=== PATIENT | female | born 1950 | race Caucasian/White ===

== ENCOUNTER 2018-08-18 07:58 | Emergency (ER) | payer MEDICARE, OTHER, SELFPAY ==
[2018-08-18 07:58] VITALS: BP 138/62; PULSE 103; RESP 18; TEMP 36.9; O2SAT 96; BMI 23.2
--- NOTE | 2018-08-18 08:19 | EKG12_ITS ---
Test Reason : SOB Blood Pressure : / mmHG Vent. Rate : 082 BPM Atrial Rate : 082 BPM P-R Int : 124 ms QRS Dur : 074 ms QT Int : 378 ms P-R-T Axes : 074 040 067 degrees QTc Int : 441 ms Normal sinus rhythm Nonspecific ST and T wave abnormality Abnormal ECG Confirmed by OLLIE SHIRLEY, CRISPIN ([id number]), primer expeditor and drier DEXTER HAWKINS ([id number]) on 08/20/2018 2:59:09 PM Referred By: LC Confirmed By:CRISPIN LEVIN MD
--- NOTE | 2018-08-18 08:19 | RAD_ITS ---
STUDY: X-RAY CHEST REASON FOR EXAM: Female, 67 years old. Recent outside the tube sickness. TECHNIQUE: PA and lateral views of the chest. COMPARISON: None. FINDINGS: Basilar atelectatic changes with no evidence of focal opacity. There is no demonstrated pleural abnormality. Normal size heart. Normal mediastinum and lake. Normal visualized pulmonary arteries. Normal visualized aortic arch and descending thoracic aorta. Normal visualized thoracic spine. Normal visualized ribs, clavicles, and shoulders. There is no demonstrated abnormality of the visualized soft tissue structures of the upper abdomen. RAD/Chest PA and Lateral IMPRESSION: Basilar atelectasis with no evidence of focal airspace disease. Electronically Signed: Ephraim Gill DO at 9:57 EDT , Service support ,
--- NOTE | 2018-08-18 08:21 | ED.VISSUMM ---
- ER Visit Summary Date of Service: 08/18/18 Chief Complaint: [] Cough fever shortness of breath this morning History of Present Illness: The patient is a 67 F [] she reports she woke this morning around 4 AM with a harsh cough productive of some mucus temperature of 101 and shortness of breath. She has a home pulse ox machine she gets her pulse ox around 77% on room air. She has no history of pneumonia [place] PE DVT no risk factors for DVT or PE. Also complains of some facial pressure but has no significant signs of runny nose or sinusitis She is on no medications. She indicates she recently returned from a trip to [place] a few days ago. While there she was at 10,000 feet and she developed what was seems to be altitude illness where she states she had a headache shortness of breath, she was seen by physicians there and placed on oxygen and her symptoms actually improved she stayed for a few more days and came home a few days ago. Reports she was feeling well until she woke this morning with a temperature in the cough. Her bowel bladder habits have been normal she is been very active, she denies leg edema recent surgery or immobility. She currently has a pulse ox anywhere from 90-94 on room air here in the department she is feeling better with no complaints of shortness of breath now she is afebrile Physical Examination: [] Vital signs are within normal ranges above she is in no distress speaking full sentences her nose and throat are unremarkable her neck is very supple her lungs are clear heart tones are normal the abdomen soft nontender upper lower extremities unremarkable no cyanosis clubbing or edema or signs of DVT neurologically she is awake moving all 4 skin is normal the back is unremarkable, her HEENT exam shows really no significant abnormalities no drainage complains of facial pressure skin is normal no percussion tenderness Test Results: [] Emergency Department Course and Treatment: [] Given all the above complaints evaluation screening labs head CT EKG The patient's lab studies are generally unremarkable except her white count is 20,000, d-dimer returns at 0.50, normal 0.49, chest x-ray shows bibasilar atelectasis per radiology please see all those reports Patient's daughter presented to the emergency department and is a radiologist, would like to defer the head CT. We also discussed the d-dimer with the daughter who agreed not to proceed with CTA of chest at this time given that the d-dimer results and lack of risk factors except for the airplane travel Patient's received an aerosol she is resting comforting the bed she is in no distress her pulse ox continues to range from about 91-94 she states she feels better I had a long conversation with the patient and her family we discussed inpatient versus outpatient management discussed the concept of pneumonia the bibasilar atelectasis on the chest x-ray, the patient states she does not wish to be admitted she wants to go home she states she is under strong affective family support her daughter is a physician, she will return for any change in symptoms, at this time she will be started on Levaquin first dose here Proventil inhaler, Mucinex she will follow-up with her family doctor early next week and she is also referred to [facility], and again she does not wish to be admitted Treatment Plan: [] Disposition: [] Home stable declined admission Impression: [] Possible bilobar pneumonia, cough fever, recent high altitude illness when in [place] This note was generated with [employer] dictation software. It may contain incorrect words, spelling, and punctuation that were not noted in review of the chart prior to signing ED Disposition - Plan for ED Patient: Chief Complaint: Shortness of Breath Referrals: Sánchez Segura Chi, MD [Primary Care Provider] -
--- NOTE | 2018-08-18 08:24 | ED.DCSUM_ITS ---
- ER Visit Summary Date of Service: 08/18/18 Chief Complaint: [] Cough fever shortness of breath this morning History of Present Illness: The patient is a 67 F [] she reports she woke this morning around 4 AM with a harsh cough productive of some mucus temperature of 101 and shortness of breath. She has a home pulse ox machine she gets her pulse ox around 77% on room air. She has no history of pneumonia [place] PE DVT no risk factors for DVT or PE. Also complains of some facial pressure but has no significant signs of runny nose or sinusitis She is on no medications. She indicates she recently returned from a trip to [place] a few days ago. While there she was at 10,000 feet and she developed what was seems to be altitude illness where she states she had a headache shortness of breath, she was seen by physicians there and placed on oxygen and her symptoms actually improved she stayed for a few more days and came home a few days ago. Reports she was feeling well until she woke this morning with a temperature in the cough. Her bowel bladder habits have been normal she is been very active, she denies leg edema recent surgery or immobility. She currently has a pulse ox anywhere from 90-94 on room air here in the department she is feeling better with no complaints of shortness of breath now she is afebrile Physical Examination: [] Vital signs are within normal ranges above she is in no distress speaking full sentences her nose and throat are unremarkable her neck is very supple her lungs are clear heart tones are normal the abdomen soft nontender upper lower extremities unremarkable no cyanosis clubbing or edema or signs of DVT neurologically she is awake moving all 4 skin is normal the back is unremarkable, her HEENT exam shows really no significant abnormalities no drainage complains of facial pressure skin is normal no percussion tenderness Test Results: [] Emergency Department Course and Treatment: [] Given all the above complaints evaluation screening labs head CT EKG The patient's lab studies are generally unremarkable except her white count is 20,000, d-dimer returns at 0.50, normal 0.49, chest x-ray shows bibasilar atelectasis per radiology please see all those reports Patient's daughter presented to the emergency department and is a radiologist, would like to defer the head CT. We also discussed the d-dimer with the daughter who agreed not to proceed with CTA of chest at this time given that the d-dimer results and lack of risk factors except for the airplane travel Patient's received an aerosol she is resting comforting the bed she is in no distress her pulse ox continues to range from about 91-94 she states she feels better I had a long conversation with the patient and her family we discussed inpatient versus outpatient management discussed the concept of pneumonia the bibasilar atelectasis on the chest x-ray, the patient states she does not wish to be admitted she wants to go home she states she is under strong affective family support her daughter is a physician, she will return for any change in symptoms, at this time she will be started on Levaquin first dose here Proventil inhaler, Mucinex she will follow-up with her family doctor early next week and she is also referred to [facility], and again she does not wish to be admitted Treatment Plan: [] Disposition: [] Home stable declined admission Impression: [] Possible bilobar pneumonia, cough fever, recent high altitude illness when in [place] This note was generated with [employer] dictation software. It may contain incorrect words, spelling, and punctuation that were not noted in review of the chart prior to signing ED Disposition - Plan for ED Patient: Chief Complaint: Shortness of Breath Referrals: Sánchez Segura Chi, MD [Primary Care Provider] -
--- NOTE | 2018-08-18 08:24 | NURSING ---
NO OLD EKGS
[2018-08-18] MEDS: Ipratropium/Albuterol Sulfate 3 ML AMPUL.NEB INHALATION (08:35)
[2018-08-18 08:39] VITALS: O2SAT 93
[2018-08-18 08:45] VITALS: PULSE 90; RESP 16
[2018-08-18 08:53] LABS: Absolute Lymphocyte Count 0.72 X10^3/ul (0.83-4.51); Absolute Neutrophil Count 18.9 X10^3/uL (2.0-7.7); Basophil# 0.01 X10^3/uL; Eosinophil# 0.04 X10^3/uL; Eosinophils% 0.2 % (0-5); Hematocrit 42.9 % (37-47); Hemoglobin 14.4 g/dl (12.0-15.0); Lymphocyte # 0.72 X10^3/ul (4.0); Lymphocyte % 3.5 % (19-41); Mean Corp Hgb Conc 33.6 g/gl (32-36); Mean Corpuscular Hgb 31.9 pg (27.0-32.0); Mean Corpuscular Volume 94.9 fL (81-99); Mean Platelet Vol. 9.8 fl (6.2-12.0); Monocyte# 0.86 X10^3/uL; Monocyte% 4.2 % (0-10); Neutrophil # 18.88 X10^3/uL (2.7-7.7); Platelet Count 304 K/mm3 (150-450); RBC Distribution Width CV 13.9 % (11.6-14.6); RBC Distribution Width SD 47.8 fl (35.1-43.9); Red Blood Count 4.52 M/mm3 (4.2-5.4); White Blood Count 20.5 K/mm3 (4.4-11.0)
[2018-08-18 09:04] LABS: BUN 17 mg/dL (7-18); Creatinine, Serum 0.92 mg/dL (0.55-1.02); Estimated Creatinine Clearance 48.41 ml/min; Glucose 110 mg/dL (74-106)
[2018-08-18 09:05] LABS: Anion Gap 10 (5-15); BUN/Creat Ratio 18.4 RATIO (10-20); Calcium,Total 8.8 mg/dL (8.5-10.1); Chloride 107 mmol/L (98-107); EST Glomerular Filtration Rate 64 mL/min (>60); Est Glom Filt Rate - Afr Amer 78 mL/min (>60); Potassium 3.7 mmol/L (3.5-5.1); Sodium Level 142 mmol/L (136-145)
[2018-08-18 09:16] LABS: POSITIVE COUNT NO; POSITIVE DIFFERENTIAL NO; POSITIVE MORPHOLOGY NO
--- NOTE | 2018-08-18 09:16 | ED.RN ---
0.5 ddimer called from the lab. dr hutchinsoned aware
[2018-08-18 10:00] VITALS: BP 130/69; PULSE 89; RESP 22; O2SAT 91
--- NOTE | 2018-08-18 10:48 | ED.DEP ---
ED Disposition - Plan for ED Patient: Chief Complaint: Shortness of Breath Instructions: ED Pneumonia Adult Prescriptions: Albuterol Inhaler [Ventolin Hfa] 1 - 2 puff INHALATION Q4H PRN PRN #1 inhaler PRN Reason: Wheezing Levofloxacin [Levaquin] 750 mg PO DAILY #7 tab Guaifenesin [Mucinex] 1,200 mg PO BID 7 Days tbmp.12hr Referrals: Sánchez Segura Chi, MD [Primary Care Provider] - Justin Santana DO [STAFF PHYSICIAN] -
[2018-08-18] MEDS: levoFLOXacin 750 MG Tablet PO (11:12)
--- NOTE | 2018-08-20 13:50 | CM.ED ---
ED CALLBACK: Follow-up call placed to patient with no answer. Voicemail left with return contact information.
== END 2018-08-18 11:19 | disposition home or self-care (01) ==
PROVIDERS: Emergency Provider Emergency Medicine; Family Provider Family Medicine Geriatric Medicine; PCP Family Medicine Geriatric Medicine
DX: J18.9 Pneumonia, unspecified organism (principal); R06.02 Shortness of breath
CPT/HCPCS: 71046; 80048; 83880; 84484; 85025; 85379; 93005; 94640; 99285; A4216

== ENCOUNTER → 2018-09-13 10:26 | Outpatient (CLI) | payer MEDICARE, OTHER, SELFPAY ==
[2018-09-13 12:40] LABS: Absolute Neutrophil Count 5.4 X10^3/uL (2.0-7.7); Basophil# 0.03 X10^3/uL; Basophil% 0.4 % (0-1); Eosinophil# 0.18 X10^3/uL; Eosinophils% 2.2 % (0-5); Hematocrit 39.5 % (37-47); Hemoglobin 13.1 g/dl (12.0-15.0); Lymphocyte % 24.2 % (19-41); Mean Corp Hgb Conc 33.2 g/gl (32-36); Mean Corpuscular Hgb 32.1 pg (27.0-32.0); Mean Corpuscular Volume 96.8 fL (81-99); Mean Platelet Vol. 11.1 fl (6.2-12.0); Monocyte% 7.3 % (0-10); Neutrophil # 5.43 X10^3/uL (2.7-7.7); Neutrophil % 65.8 % (47-70); Platelet Count 306 K/mm3 (150-450); RBC Distribution Width CV 13.5 % (11.6-14.6); RBC Distribution Width SD 46.8 fl (35.1-43.9); Red Blood Count 4.08 M/mm3 (4.2-5.4); White Blood Count 8.3 K/mm3 (4.4-11.0)
[2018-09-13 12:44] LABS: POSITIVE COUNT NO; POSITIVE DIFFERENTIAL NO; POSITIVE MORPHOLOGY NO
[2018-09-13 12:59] LABS: Vitamin D,25 Hydroxy 25.3 ng/mL (29.95-100.01)
[2018-09-13 13:00] LABS: ALB/GLOB Ratio 0.9 RATIO (0.9-2.4); AST(SGOT) 19 U/L (15-37); Alanine Aminotransfer ALT/SGPT 23 U/L (13-56); Albumin, Serum 3.5 g/dL (3.2-5.0); Alkaline Phosphatase 70 U/L (45-117); Anion Gap 9 (5-15); BUN 13 mg/dL (7-18); BUN/Creat Ratio 16.3 RATIO (10-20); Calcium,Total 8.3 mg/dL (8.5-10.1); Chloride 107 mmol/L (98-107); EST Glomerular Filtration Rate 76 mL/min (>60); Est Glom Filt Rate - Afr Amer 92 mL/min (>60); Globulin 3.9 g/dL (2.2-4.2); Glucose 77 mg/dL (74-106); Potassium 3.9 mmol/L (3.5-5.1); Protein, Total 7.4 g/dL (6.4-8.2); Sodium Level 141 mmol/L (136-145); Thyroid Stim Hormone (TSH) 2.16 uIU/mL (0.358-3.74)
== END ==
PROVIDERS: Family Provider Family Medicine Geriatric Medicine; PCP Family Medicine Geriatric Medicine; Visit Provider Family Medicine Geriatric Medicine
DX: E55.9 Vitamin D deficiency, unspecified (principal); R53.83 Other fatigue
CPT/HCPCS: 36415; 80053; 82306; 84443; 85025

== ENCOUNTER → 2018-11-01 08:28 | Outpatient (CLI) | payer MEDICARE, OTHER, SELFPAY ==
[2018-08-30 06:32] VITALS: BMI 22.8
--- NOTE | 2018-11-01 08:31 | BI_ITS ---
MAMMOGRAPHY - BILATERAL SCREENING REASON FOR EXAM: Female, 68 years old. Routine annual screening examination. PERTINENT HISTORY: Non-contributory. TECHNIQUE: Digital bilateral breast jerry (3D mammographic acquisition) in the CC and MLO projections. 2-D mediolateral oblique (MLO) and craniocaudad (CC) views of both breasts were obtained. CAD: Full Field Digital Mammography with Computer Added Detection was performed. COMPARISON: Comparison is made with prior study dated September 29, 2016 and December 18, 2014. FINDINGS: Breast Composition: The breasts are heterogeneously dense, which may obscure small masses. There are no dominant masses or suspicious calcifications. No other significant abnormalities are identified. There has been no significant change since the prior study. BI/SCREENING MAMM (CAD), BILAT IMPRESSION: Stable bilateral screening mammogram. Yearly follow-up mammogram recommended. (A) ASSESSMENT CATEGORY: BIRADS Category 1: Negative. A letter regarding these results will be sent to the patient by the facility within 30 days. Approximately 10% of breast cancers are not detected by mammography. A normal mammogram should not delay biopsy of a clinically suspicious abnormality. [id number] Electronically Signed: Jose Jennings MD at 15:03 EST Tel [phone], Service support ,
== END ==
PROVIDERS: Family Provider Family Medicine Geriatric Medicine; PCP Family Medicine Geriatric Medicine; Visit Provider Family Medicine Geriatric Medicine
DX: Z12.31 Encounter for screening mammogram for malignant neoplasm of breast (principal)
CPT/HCPCS: 77063; 77067; 97164

== ENCOUNTER 2018-11-01 09:30 | Outpatient (RCR) | payer MEDICARE, OTHER, SELFPAY ==
--- NOTE | 2018-09-24 10:25 | HP.PTEVAL_ITS ---
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 Date of Evaluation: 09/24/18 Physical Therapist: Clau Man - Visit Plan Frequency: 2-3x /Week Duration: 3 Weeks Plan: Focus on scapular s/s and posture- Ultrasound as modality of choice - Subjective Subjective: Initially started at [employer] riding a ride and was spinning the [place] a few years ago. Patient reports left arm pain- this time its been bothering her for about 3-4 weeks. Same problems about about a year- she had a cortisone injection. Was lifting heavy items and now the pain is back. No xrays- sent her to therapy with no injection. Pain is on the anterior shoulder andthe deltoid- Left side only- Right hand domiante. No pain past the elbow. No increase neck pain. But has had major neck problems in the past. Massage therapy makes it better. No increase in LUKE, blurred vision, dizziness. Describes pain as acute more ouch. Worst: 5/10 Agg: movement out to the side and up/down- out to the side is the worst. Best: 0/10 Eases: stop moving the arm. Sometimes in bed- sleep is not really disturbed- side sleeper. No N/T in the fingers. No dropping things or decreased finger dexterity. Very active- around the house (painting, carrying things- rental house). No home exercise program. PMHx: neck problem, arthritis meds: injection 2x a year for bone denisty. Epi pen for red pepper. - Objective Posture: FH, RS- can correct with verbal cues but does not maintain. Gait: good arm swing and trunk rotation. Palpation: tender along infraspinatus and bicipital groove. ROM: opposition: WNL Elbow: WNL, Shoulder: WNL pain at end range flexion and IR behind the back. Strength: elbow: 5/5 Shoulder: flexion: 4/5, Extn: 4+/5, Abd: 4/5, Add: 4+/5, IR: 4/5, ER: 4/5 with pain in all directions. Special Test: Neer:positive, Jaylan Moris: positive, Empty can: positive - Goals Goal 1:: Patient will be I with HEP and progression Goal Time Frame: 4-6 Weeks Goal 2:: Patient will maintain proper posture t.o tx session to demo increased scap s.s Goal Time Frame: 4-6 Weeks Goal 3:: Patient will report 0/10 pain for 1 week Goal Time Frame: 4-6 Weeks Goal 4:: Patient will demo 5/5 strength in UE Goal Time Frame: 4-6 Weeks - Rehabilitation Potential Physical Therapy Diagnosis: Patient presents with hypomobility- she has decreased strength and scapular s/s leading to poor posture and increased pain with ADL's. Rehabilitation Potential: Fair - Anticipated Interventions Therapeutic Exercise to Include: Strength training, Endurance training, Body mechanics, Postural training, Scapular Strength/Stabilization For the Purpose of:: To improve muscle performance and motor function TENS: Yes Cryotherapy (ice pack, ice massage): Yes Thermo therapy (hot pack): Yes Ultrasound (thermal/non thermal): Yes Thank you for the opportunity to evaluate your patient. For Medicare and Medicare HMO plans, please review the plan of care and approve it. It will need to be FAXED BACK to us at [phone] for Medicare purposes. Please let me know if there are questions or concerns regarding this plan of care. Physician Signature: Date:
--- NOTE | 2018-10-12 10:24 | HP.PTREVAL ---
Sánchez Segura, It has been my pleasure to treat SINDHU VILLALTA over the last 9 visits for RTC syndrome. Please see the progress note below for an update on the physical therapy plan of care! Subjective: Patient reports that she is a little better- she noticed some improvements this week with less intense pain and better range of motion. 3/10 at the worst in the past week. Feels that she is improving. Pain is only when she is moving her shoulder into abduction Objective/Function: Posture: FH, RS- can correct with verbal cues but does not maintain more than 3 min in unsupported sitting. Gait: good arm swing and trunk rotation. Palpation: tender along infraspinatus and bicipital groove. ROM: opposition: WNL Elbow: WNL, Shoulder: WNL - no pain at end range IR. Strength: elbow: 5/5 Shoulder: flexion: 4+/5, Extn: 5/5, Abd: 4/5 with pain, Add: 4+/5, IR: 4+/5, ER: 4/5. Special Test: Fionaer:positive, Jaylan Moris: positive, Empty can: positive Plan Plan: Continue 2x a week for 4 weeks- with return to MD for possible injection/re-evaluation for images Goals Goal 1:: Patient will be I with HEP and progression Goal Time Frame: 4-6 Weeks Goal Progress: Progressing Goal 2:: Patient will maintain proper posture t.o tx session to demo increased scap s.s Goal Time Frame: 4-6 Weeks Goal Progress: Progressing Goal 3:: Patient will report 0/10 pain for 1 week Goal Time Frame: 4-6 Weeks Goal Progress: Progressing Goal 4:: Patient will demo 5/5 strength in UE Goal Time Frame: 4-6 Weeks Goal Progress: Progressing Anticipated Interventions Therapeutic Exercise to Include: Strength training, Endurance training, Body mechanics, Postural training, Scapular Strength/Stabilization For the Purpose of:: To improve muscle performance and motor function TENS: Yes Cryotherapy (ice pack, ice massage): Yes Thermo therapy (hot pack): Yes Ultrasound (thermal/non thermal): Yes Please do not hesitate to contact me at [phone] by phone or if you have questions or concerns regarding this new plan of care! Sincerely, Clau Man
--- NOTE | 2018-11-01 09:44 | HP.PTDCSUM ---
HP - PT D/C Summary It has been my pleasure to treat SINDHU VILLALTA under orders from Sánchez Segura MD, for the diagnosis of RTC syndrome for a total of 13 visit(s). Discharge Date: Please see the following information for a summary of their discharge status. - Subjective Subjective: Patient reports that the shoulder is good. No pain in anything that she does. Shoulder is back to normal. Feels good about the exercises at home. No limitations for anything - Pain L shldr Pain Intensity (Out of 10): 0 - Overall Improvement % Improvement: 99 - Objective Objective/Function: Posture:good throughout Gait: good arm swing and trunk rotation. Palpation: not tender ROM: opposition: WNL Elbow: WNL, Shoulder: WNL Strength: elbow: 5/5 Shoulder: flexion: 4+/5, Extn: 5/5, Abd: 4+/5, Add: 4+/5, IR: 4+/5, ER: 4/5. Special Test: Neer:negative, Tian Moris: negative, Empty can: negative - Goals Goal 1:: Patient will be I with HEP and progression Goal Progress: Goal Met Goal 2:: Patient will maintain proper posture t.o tx session to demo increased scap s.s Goal Progress: Goal Met Goal 3:: Patient will report 0/10 pain for 1 week Goal Progress: Goal Met Goal 4:: Patient will demo 5/5 strength in UE Goal Progress: Progressing - Plan Plan: Discharge to I HEP - D/C Information If there are questions or concerns regarding this patient's physical therapy, please feel free to call me at [phone]. Thank you for the referral of this patient. Sincerely, Clau Man DPT
== END 2018-11-01 11:37 | disposition home or self-care (01) ==
LOC: PT 09:30
PROVIDERS: Family Provider Family Medicine Geriatric Medicine; PCP Family Medicine Geriatric Medicine; Referring Provider Family Medicine Geriatric Medicine; Visit Provider Family Medicine Geriatric Medicine
DX: M75.102 Unspecified rotator cuff tear or rupture of left shoulder, not specified as traumatic (principal)
CPT/HCPCS: 97035; 97110; 97161; 97164; 97530

== ENCOUNTER 2019-02-09 07:27 | Emergency (ER) | payer MEDICARE, OTHER, SELFPAY ==
[2019-02-09 07:28] VITALS: BP 161/79; PULSE 73; RESP 16; TEMP 36.6; O2SAT 95; BMI 22.1
[2019-02-09] MEDS: 0.9% Normal Saline 1,000 ML 1000 ML IV (08:14)
[2019-02-09] MEDS: Dicyclomine 10 MG Capsule 20 MG PO (08:15)
[2019-02-09 08:28] LABS: Anion Gap 5 (5-15); BUN 10 mg/dL (7-18); BUN/Creat Ratio 12.8 RATIO (10-20); Calcium,Total 8.7 mg/dL (8.5-10.1); Chloride 106 mmol/L (98-107); Creatinine, Serum 0.78 mg/dL (0.55-1.02); EST Glomerular Filtration Rate 78 mL/min (>60); Est Glom Filt Rate - Afr Amer 94 mL/min (>60); Estimated Creatinine Clearance 43.92 ml/min; Glucose 100 mg/dL (74-106); Potassium 3.7 mmol/L (3.5-5.1); Sodium Level 138 mmol/L (136-145)
--- NOTE | 2019-02-09 10:10 | ED.VIS.GEN ---
History of Present Illness Chief Complaint: Diarrhea Informant: Patient, Family Onset: Days - Earlier in the week Context: Sudden Onset Timing: Intermittent, Waxes and wanes Quality: Diarrhea, sharp achy colicky lower abdominal pain Location: bilateral lower abdominal pain Current Severity: Mild Maximum Severity: Severe Worsened by: Diarrhea Relieved by: Nothing Associated Symptoms: Nausea, dry mouth, thirst Narrative: Patient is an elderly woman who presents with viral type symptoms that started earlier this week. She reports diarrhea. She states she has mushy watery stool. She gone numerous times since midnight. She states the diarrhea has gotten worse over the past 24 hours. She denies vomiting. She denies fever, chills night sweats. She denies cardiac respiratory symptoms. She does report decreased urine output. She denies dysuria or hematuria. She denies rectal pain. She denies rash. She has no other complaints. Prior similar symptoms: No Recent Illness/Hospitalization: No - Past Medical History (1) Osteoporosis Status: Acute Past Medical History - Allergies and Home Meds Allergies/Adverse Reactions: Allergies erythromycin base [Erythromycin Base] Allergy (Verified 02/09/19 07:28) Other prochlorperazine edisylate [From Compazine] Allergy (Verified 02/09/19 07:28) Other prochlorperazine maleate [From Compazine] Allergy (Verified 02/09/19 07:28) Other RED PEPPER Allergy (Uncoded 02/09/19 07:28) Hives Primary Care Physician: Sánchez Segura Chi, MD [Primary Care Provider] - Prior records reviewed: Yes - Osteoporosis receiving IV therapy Surgical History: noncontributory Lives: Spouse/ Significant Other Smoking Status: Never smoker Drugs: None Review of Systems General: Denies: Chills, Fever, Malaise, Subjective, Sweats, Weight loss, - Eyes: Denies: Visual changes - bilaterally, Blurred Vision - bilaterally ENT: Denies: Rhinorrhea, Sore throat Cardiovascular: Denies: Chest pain, Palpitations, Heart racing, -, - Respiratory: Denies: Dyspnea, Cough, Sputum, Dyspnea on exertion, Orthopnea, Paroxysmal nocturnal dyspnea, -, - Gastrointestinal: Reports: Abdominal pain, Nausea, Diarrhea. Denies: Vomiting, Melena, Hematochezia Genitourinary: Denies: Dysuria, Hematuria, Frequency, -, - Musculoskeletal: Denies: Myalgias, Arthralgias, Neck pain, Back pain, Swelling, Extremity Pain, -, - Skin: Denies: Rash Neurological: Reports: Weakness. Denies: Parasthesia, Numbness Hematologic: Denies: Easy bruising, Easy bleeding Allergy: Denies: Uticaria Physical Exam Vital Signs/Narrative: Vital Signs Temp Pulse Resp BP Pulse Ox 02/09/19 07:28 97.9 F 73 16 161/79 H 95 Inital Vital Signs reviewed: Yes General: Well nourished, Well developed, No Acute Distress Head: Normocephalic, Atraumatic Eyes: Perrl, EOMI ENT: No rhinorrhea, TM's clear, Dry mucous membranes. Negative for: Nasal congestion, Sinus tenderness Neck: Supple, Nontender, No lymphadenopathy, No JVD, - Cardiovascular: Regular rate, Regular rhythm, No murmurs, Normal S1, Normal S2 Respiratory: No distress, CTA bilaterally, Chest nontender Abdomen: Soft, No masses, Tender, Hyperactive bowel sounds. Negative for: Guarding, Rebound tenderness, Hepatomegaly, Splenomegaly, Mass, Pulsatile mass, Ventral hernia, Inguinal hernia Back: Nontender, Normal Inspection Extremities: Nontender, No edema Skin: Normal color, No rash Neurological: Alert, Oriented x3, Cranial nerves II-XII grossly intact, Normal Strength, Normal Sensation, Normal DTR Psychological: Normal affect, Normal Mood Diagnostic/Tx/Re-eval Laboratory Results 02/09/19 08:05 Sodium 138 Potassium 3.7 Chloride 106 Carbon Dioxide 27.0 Anion Gap 5 BUN 10 Creatinine 0.78 Estim Creat Clear Calc 43.92 Est GFR (MDRD) Af Amer 94 Est GFR (MDRD) Non-Af 78 BUN/Creatinine Ratio 12.8 Glucose 100 Calcium 8.7 - Rhythm Strip Rhythm Strip: Sinus Rhythm Rate: 77 - Medical Decision Making Patient presents with viral-like symptoms and abdominal he frequent soft mushy watery stools. She does have symptoms of dehydration clinically is dehydrated. Because she is elderly and BMP was obtained since she reports symptoms started 5 days ago. IV was established. She received 1 L of normal saline. She received Zofran for nausea and Bentyl for her abdominal discomfort. She was reassessed at 1010. She states the pain improved slightly. She was administered IV morphine and Imodium for diarrhea. She has used the restroom 3 times since the initial evaluation. She has no risk factors for C. difficile. She denied blood or mucus in her stool. Electrolyte panel was unremarkable. Patient diarrhea has ceased. He has urinated. She was reassessed at 1320. ED Disposition - Plan for ED Patient: Disposition: Home or Assisted Living Diagnosis: Abdominal pain, acute, bilateral lower quadrant, Diarrhea in adult patient, Mild dehydration Instructions: ED Vomiting Diarrhea Nonspecific Ad Prescriptions: Dicyclomine HCl [Bentyl] 20 mg PO TIDAC #10 capsule Referrals: Sánchez Seugra Chi, MD [Primary Care Provider] - 1-2 Days if not improving
[2019-02-09] MEDS: Morphine 2 MG/ML Syringe IV (10:57)
[2019-02-09] MEDS: Loperamide 2 MG Capsule 4 MG PO (10:58)
[2019-02-09 11:04] VITALS: BP 156/82; PULSE 64; RESP 18; O2SAT 97
[2019-02-09 12:42] VITALS: BP 128/93; PULSE 64; RESP 16; O2SAT 97
--- NOTE | 2019-02-09 12:43 | ED.RN ---
pt has been up to bathroom multiple times. has not had any diarrhea since immodium
[2019-02-09 13:37] VITALS: BP 156/91; PULSE 75; RESP 16; O2SAT 95
== END 2019-02-09 13:37 | disposition home or self-care (01) ==
PROVIDERS: Emergency Provider Emergency Medicine; Family Provider Family Medicine Geriatric Medicine; PCP Family Medicine Geriatric Medicine
DX: R10.30 Lower abdominal pain, unspecified (principal); R19.7 Diarrhea, unspecified; E86.0 Dehydration; M81.0 Age-related osteoporosis without current pathological fracture
CPT/HCPCS: 80048; 96361; 96374; 99285; J7030; A4216

== ENCOUNTER → 2019-02-19 16:46 | Outpatient (CLI) | payer MEDICARE, OTHER, SELFPAY ==
[2019-02-09 07:28] VITALS: BMI 22.1
[2019-02-19 17:39] LABS: Absolute Lymphocyte Count 2.11 X10^3/ul (0.83-4.51); Absolute Neutrophil Count 7.9 X10^3/uL (2.0-7.7); Basophil# 0.02 X10^3/uL; Basophil% 0.2 % (0-1); Eosinophil# 0.11 X10^3/uL; Hematocrit 38.9 % (37-47); Hemoglobin 12.6 g/dl (12.0-15.0); Lymphocyte # 2.11 X10^3/ul (4.0); Lymphocyte % 19.1 % (19-41); Mean Corp Hgb Conc 32.4 g/gl (32-36); Mean Corpuscular Hgb 31.3 pg (27.0-32.0); Mean Corpuscular Volume 96.5 fL (81-99); Mean Platelet Vol. 10.7 fl (6.2-12.0); Monocyte# 0.82 X10^3/uL; Monocyte% 7.4 % (0-10); Neutrophil # 7.94 X10^3/uL (2.7-7.7); Neutrophil % 71.8 % (47-70); Platelet Count 386 K/mm3 (150-450); RBC Distribution Width CV 13.6 % (11.6-14.6); RBC Distribution Width SD 46.8 fl (35.1-43.9); Red Blood Count 4.03 M/mm3 (4.2-5.4); White Blood Count 11.1 K/mm3 (4.4-11.0)
[2019-02-19 17:52] LABS: POSITIVE COUNT NO; POSITIVE DIFFERENTIAL NO; POSITIVE MORPHOLOGY NO
[2019-02-19 18:15] LABS: Anion Gap 5 (5-15); BUN 9 mg/dL (7-18); BUN/Creat Ratio 11.2 RATIO (10-20); Calcium,Total 8.3 mg/dL (8.5-10.1); Chloride 110 mmol/L (98-107); EST Glomerular Filtration Rate 75 mL/min (>60); Est Glom Filt Rate - Afr Amer 91 mL/min (>60); Glucose 68 mg/dL (74-106); Potassium 3.4 mmol/L (3.5-5.1); Sodium Level 142 mmol/L (136-145)
== END ==
PROVIDERS: Family Provider Family Medicine Geriatric Medicine; PCP Family Medicine Geriatric Medicine; Visit Provider Family Medicine Geriatric Medicine
DX: K52.89 Other specified noninfective gastroenteritis and colitis (principal)
CPT/HCPCS: 36415; 80048; 85025

== ENCOUNTER → 2019-03-06 15:11 | Outpatient (CLI) | payer MEDICARE, OTHER, SELFPAY ==
[2019-02-09 07:28] VITALS: BMI 22.1
[2019-03-06 16:18] LABS: Absolute Lymphocyte Count 2.43 X10^3/ul (0.83-4.51); Absolute Neutrophil Count 7.7 X10^3/uL (2.0-7.7); Basophil# 0.02 X10^3/uL; Basophil% 0.2 % (0-1); Eosinophils% 0.9 % (0-5); Hematocrit 43.1 % (37-47); Hemoglobin 14.4 g/dl (12.0-15.0); Lymphocyte # 2.43 X10^3/ul (4.0); Lymphocyte % 21.8 % (19-41); Mean Corp Hgb Conc 33.4 g/gl (32-36); Mean Corpuscular Hgb 32.2 pg (27.0-32.0); Mean Corpuscular Volume 96.4 fL (81-99); Mean Platelet Vol. 10.8 fl (6.2-12.0); Monocyte# 0.87 X10^3/uL; Monocyte% 7.8 % (0-10); Platelet Count 305 K/mm3 (150-450); RBC Distribution Width CV 13.3 % (11.6-14.6); RBC Distribution Width SD 47.1 fl (35.1-43.9); Red Blood Count 4.47 M/mm3 (4.2-5.4); White Blood Count 11.2 K/mm3 (4.4-11.0)
[2019-03-06 16:24] LABS: POSITIVE COUNT NO; POSITIVE DIFFERENTIAL NO; POSITIVE MORPHOLOGY NO
[2019-03-06 16:33] LABS: ALB/GLOB Ratio 0.9 RATIO (0.9-2.4); AST(SGOT) 20 U/L (15-37); Alanine Aminotransfer ALT/SGPT 19 U/L (13-56); Albumin, Serum 3.7 g/dL (3.2-5.0); Alkaline Phosphatase 81 U/L (45-117); Anion Gap 7 (5-15); BUN 12 mg/dL (7-18); BUN/Creat Ratio 13.4 RATIO (10-20); Calcium,Total 9.3 mg/dL (8.5-10.1); Chloride 106 mmol/L (98-107); EST Glomerular Filtration Rate 66 mL/min (>60); Est Glom Filt Rate - Afr Amer 80 mL/min (>60); Globulin 4.1 g/dL (2.2-4.2); Glucose 77 mg/dL (74-106); Potassium 3.6 mmol/L (3.5-5.1); Protein, Total 7.8 g/dL (6.4-8.2); Sodium Level 139 mmol/L (136-145)
== END ==
PROVIDERS: Family Provider Family Medicine Geriatric Medicine; PCP Family Medicine Geriatric Medicine; Visit Provider Family Medicine Geriatric Medicine
DX: R10.9 Unspecified abdominal pain (principal)
CPT/HCPCS: 36415; 80053; 85025

== ENCOUNTER → 2019-03-07 08:15 | Outpatient (CLI) | payer MEDICARE, OTHER, SELFPAY ==
[2019-02-09 07:28] VITALS: BMI 22.1
[2019-03-13 11:33] LABS: Miscellaneous Lab Procedure NEG
== END ==
PROVIDERS: Family Provider Family Medicine Geriatric Medicine; PCP Family Medicine Geriatric Medicine; Referring Provider Family Medicine Geriatric Medicine; Visit Provider Family Medicine Geriatric Medicine
DX: R19.7 Diarrhea, unspecified (principal)
CPT/HCPCS: 82274; 83630; 87177; 87209; 87493

== ENCOUNTER → 2019-04-02 16:42 | Outpatient (CLI) | payer MEDICARE, OTHER, SELFPAY ==
--- NOTE | 2019-04-02 16:54 | RAD_ITS ---
STUDY: X-RAY - ABDOMEN/PELVIS REASON FOR EXAM: Female, 68 years old. Abdominal pain, recent history of C. Difficile TECHNIQUE: AP supine and upright views of the abdomen and pelvis. COMPARISON: Chest x-ray 08/18/2018 FINDINGS: Mild elevation of the right hemidiaphragm , opacification of the left base, new since previous exam. There is an unremarkable bowel gas pattern. There is no demonstrated free abdominal air. There is no wall thickening or thumbprinting of the mucosa. Normal soft tissue structures. There are stable diffuse degenerative changes of the visualized spine, osteopenia, mild scoliosis of the lower thoracic spine. RAD/Abd Inc Decub and/or Erect IMPRESSION: No evidence of colitis or wall edema, obstruction or perforation. Airspace opacification left base, possibly atelectasis or pneumonia. Other nonacute findings as outlined above. Electronically Signed: Miryam Wallis MD at 1:13 EDT , Service support ,
[2019-04-02 17:34] LABS: Absolute Lymphocyte Count 2.29 X10^3/ul (0.83-4.51); Absolute Neutrophil Count 4.5 X10^3/uL (2.0-7.7); Basophil# 0.03 X10^3/uL; Basophil% 0.4 % (0-1); Eosinophil# 0.11 X10^3/uL; Eosinophils% 1.4 % (0-5); Hematocrit 42.2 % (37-47); Hemoglobin 13.9 g/dl (12.0-15.0); Lymphocyte # 2.29 X10^3/ul (4.0); Lymphocyte % 29.7 % (19-41); Mean Corp Hgb Conc 32.9 g/gl (32-36); Mean Corpuscular Volume 94.2 fL (81-99); Mean Platelet Vol. 10.4 fl (6.2-12.0); Monocyte# 0.76 X10^3/uL; Monocyte% 9.8 % (0-10); Neutrophil # 4.51 X10^3/uL (2.7-7.7); Neutrophil % 58.4 % (47-70); Platelet Count 318 K/mm3 (150-450); RBC Distribution Width SD 43.7 fl (35.1-43.9); Red Blood Count 4.48 M/mm3 (4.2-5.4); White Blood Count 7.7 K/mm3 (4.4-11.0)
[2019-04-02 17:57] LABS: Anion Gap 4 (5-15); BUN 12 mg/dL (7-18); BUN/Creat Ratio 15.4 RATIO (10-20); Calcium,Total 9.2 mg/dL (8.5-10.1); Chloride 107 mmol/L (98-107); Creatinine, Serum 0.78 mg/dL (0.55-1.02); EST Glomerular Filtration Rate 78 mL/min (>60); Est Glom Filt Rate - Afr Amer 94 mL/min (>60); Glucose 82 mg/dL (74-106); Potassium 3.8 mmol/L (3.5-5.1); Sodium Level 140 mmol/L (136-145)
[2019-04-02 17:59] LABS: POSITIVE COUNT NO; POSITIVE DIFFERENTIAL NO; POSITIVE MORPHOLOGY NO
== END ==
LOC: POLAB3 16:43 → RAD 16:50
PROVIDERS: Family Provider Family Medicine Geriatric Medicine; PCP Family Medicine Geriatric Medicine; Referring Provider Family Medicine Geriatric Medicine; Visit Provider Family Medicine Geriatric Medicine
DX: R10.9 Unspecified abdominal pain (principal); R19.7 Diarrhea, unspecified
CPT/HCPCS: 36415; 74019; 80048; 85025

== ENCOUNTER → 2019-04-03 09:22 | Outpatient (CLI) | payer MEDICARE, OTHER, SELFPAY ==
--- NOTE | 2019-04-03 10:29 | US_ITS ---
STUDY: ABDOMINAL ULTRASOUND - RIGHT UPPER QUADRANT REASON FOR VISIT: Female, 68 years old. Abdominal pain. Frequent bowel movements. TECHNIQUE: Ultrasound evaluation of the right upper quadrant was performed with real-time and static tovar-scale imaging. TECHNICAL QUALITY: Adequate. COMPARISON: None. FINDINGS: Liver: The liver measures 12.0 cm. There is normal echogenicity of the liver. The bile ducts are within normal limits. There is hepatic color flow. The direction of portal flow is hepatopetal. There is a 1.6 cm x 1.5 cm x 1.8 cm hypoechoic nodule in the posterior superior aspect of the right lobe of the liver. This most likely represents a small hemangioma. Gallbladder: Normal distended gallbladder. The gallbladder wall measures 2.6 mm. There is a negative sonographic Hood's sign. There is no pericholecystic fluid. There are no gallstones. Common Bile Duct (C.B.D.): The common bile duct measures 5.3 mm. Pancreas: Normal size of the head, body and tail of the pancreas. There is normal echogenicity of the pancreas. There is no demonstrated pancreatic mass or cyst. Right Kidney: Normal size of the right kidney. The right kidney measures 9.2 cm x 4.8 cm x 3.4 cm. Normal renal cortex. The right cortex measures 1.1 cm. There is no demonstrated renal mass or cyst. There is no right hydronephrosis. Findings suggestive of a 3 mm x 3 mm x 2 mm calculus in the superior pole. US/Gallbladder IMPRESSION: Fine suggestive of a small hemangioma in the right lobe of the liver as described. Questionable tiny calculus in the upper pole of the right kidney. Electronically Signed: Jose Jennings, at 12:41 EDT , Service support ,
== END ==
PROVIDERS: Family Provider Family Medicine Geriatric Medicine; PCP Family Medicine Geriatric Medicine; Referring Provider Family Medicine Geriatric Medicine; Visit Provider Family Medicine Geriatric Medicine
DX: R10.9 Unspecified abdominal pain (principal); R19.7 Diarrhea, unspecified
CPT/HCPCS: 76705; 82274; 83630; 87177; 87209; 87493

== ENCOUNTER → 2019-07-22 15:12 | Outpatient (CLI) | payer MEDICARE, OTHER, SELFPAY ==
--- NOTE | 2019-07-22 15:15 | RAD_ITS ---
STUDY: X-RAY - LUMBOSACRAL SPINE REASON FOR EXAM: Female, 68 years old. Bilateral hip and leg pain, low back pain TECHNIQUE: 7 view(s) of the lumbosacral spine were obtained. COMPARISON: None FINDINGS: Normal lumbar lordosis. There is no substantial scoliosis. There is a grade 2 anterolisthesis of L4 relative to L5 with no evidence of associated spondylolysis. Normal vertebral bodies and endplates. There is severe narrowing of the L4-5 disc space with sclerosis of the adjacent endplates. Normal bilateral sacral ala, sacroiliac joints, and visualized sacrum. Normal visualized soft tissue structures. RAD/L/S Spine w Bend Min 6 Vw IMPRESSION: Grade 2 anterolisthesis of L4 relative to L5. Severe narrowing of the L4-5 disc space with sclerosis of the adjacent endplates. Electronically Signed: Speedy Dukes MD at 16:48 EDT , Service support ,
--- NOTE | 2019-07-22 15:15 | RAD_ITS ---
STUDY: X-RAY - LEFT SHOULDER REASON FOR EXAM: Female, 68 years old. Left shoulder and arm pain TECHNIQUE: 4 view(s) of the shoulder. COMPARISON: Previous study of 11/17/2017 FINDINGS: Normal glenohumeral articulation. Normal acromioclavicular joint. Normal acromion. Normal humeral head and visualized proximal humerus. The soft tissue structures are unremarkable. Normal visualized pulmonary apex. RAD/Shoulder min 2 Views IMPRESSION: Normal x-ray examination of the shoulder. Electronically Signed: Speedy Dukes MD at 16:04 EDT , Service support ,
--- NOTE | 2019-07-22 15:16 | RAD_ITS ---
STUDY: X-RAY - PELVIS AND BILATERAL HIPS REASON FOR EXAM: Female, 68 years old. Bilateral hip pain, no known injury TECHNIQUE: AP view of the pelvis.? 2 views of the right hip, and 2 views of the left hip were obtained. COMPARISON: None. FINDINGS: There is a non-specific bowel gas pattern. Normal visualized soft tissue structures. Normal bilateral iliac wings, sacroiliac joints and visualized sacrum. Normal bilateral superior and inferior pubic rami. Normal pubic symphysis. Normal bilateral ischial tuberosities. Normal visualized right femoral head. Normal right acetabulum. Normal right hip joint. Normal visualized left femoral head. Normal left acetabulum. Normal left hip joint. RAD/Hips B/L min 2 views w/ Pelvis IMPRESSION: Normal x-ray examination of the pelvis and bilateral hips. Electronically Signed: Speedy Dukes MD at 16:46 EDT , Service support ,
== END ==
PROVIDERS: Family Provider Family Medicine Geriatric Medicine; PCP Family Medicine Geriatric Medicine; Referring Provider Family Medicine Geriatric Medicine; Visit Provider Family Medicine Geriatric Medicine
DX: M54.30 Sciatica, unspecified side (principal); M25.519 Pain in unspecified shoulder; M25.559 Pain in unspecified hip
CPT/HCPCS: 72114; 73030; 73521

== ENCOUNTER → 2019-08-09 10:49 | Outpatient (CLI) | payer MEDICARE, OTHER, SELFPAY ==
[2019-08-09 13:04] LABS: Absolute Lymphocyte Count 1.53 X10^3/uL (0.83-4.51); Absolute Neutrophil Count 10.5 X10^3/uL (2.0-7.7); Basophil# 0.05 X10^3/uL; Basophil% 0.4 % (0-1); Eosinophil# 0.06 X10^3/uL; Eosinophils% 0.5 % (0-5); Hematocrit 44.3 % (37-47); Hemoglobin 14.2 g/dL (12.0-15.0); Lymphocyte # 1.53 X10^3/ul (4.0); Mean Corp Hgb Conc 32.1 g/dL (32-36); Mean Corpuscular Hgb 30.5 pg (27.0-32.0); Mean Corpuscular Volume 95.3 fL (81-99); Mean Platelet Vol. 10.6 fl (6.2-12.0); Monocyte# 0.53 X10^3/uL; Monocyte% 4.2 % (0-10); NRBC Flagged by Analyzer 0 % (0-5); Neutrophil % 82.4 % (47-70); Platelet Count 236 K/mm3 (150-450); RBC Distribution Width CV 13.5 % (11.6-14.6); RBC Distribution Width SD 47.6 fl (35.1-43.9); Red Blood Count 4.65 M/mm3 (4.2-5.4); White Blood Count 12.7 K/mm3 (4.4-11.0)
[2019-08-09 13:25] LABS: Anion Gap 8 (5-15); BUN 13 mg/dL (7-18); BUN/Creat Ratio 13.9 RATIO (10-20); Calcium,Total 9.1 mg/dL (8.5-10.1); Chloride 110 mmol/L (98-107); Creatinine, Serum 0.94 mg/dL (0.55-1.02); EST Glomerular Filtration Rate 63 mL/min (>60); Est Glom Filt Rate - Afr Amer 76 mL/min (>60); Glucose 83 mg/dL (74-106); Potassium 3.8 mmol/L (3.5-5.1); Sodium Level 143 mmol/L (136-145)
== END ==
PROVIDERS: Family Provider Family Medicine Geriatric Medicine; PCP Family Medicine Geriatric Medicine; Visit Provider Family Medicine Geriatric Medicine
DX: R63.8 Other symptoms and signs concerning food and fluid intake (principal)
CPT/HCPCS: 36415; 80048; 85025

== ENCOUNTER → 2019-09-18 12:12 | Outpatient (CLI) | payer MEDICARE, OTHER, SELFPAY ==
[2019-09-18 13:15] LABS: Absolute Lymphocyte Count 1.81 X10^3/uL (0.83-4.51); Absolute Neutrophil Count 6.8 X10^3/uL (2.0-7.7); Basophil# 0.04 X10^3/uL; Basophil% 0.4 % (0-1); Eosinophil# 0.05 X10^3/uL; Eosinophils% 0.5 % (0-5); Hematocrit 43.5 % (37-47); Hemoglobin 14.1 g/dL (12.0-15.0); Lymphocyte # 1.81 X10^3/ul (4.0); Lymphocyte % 19.4 % (19-41); Mean Corp Hgb Conc 32.4 g/dL (32-36); Mean Corpuscular Hgb 31.5 pg (27.0-32.0); Mean Corpuscular Volume 97.3 fL (81-99); Mean Platelet Vol. 10.3 fl (6.2-12.0); Monocyte# 0.59 X10^3/uL; Monocyte% 6.3 % (0-10); NRBC Flagged by Analyzer 0 % (0-5); Neutrophil # 6.77 X10^3/uL (2.7-7.7); Neutrophil % 72.6 % (47-70); Platelet Count 308 K/mm3 (150-450); RBC Distribution Width CV 14.4 % (11.6-14.6); RBC Distribution Width SD 51.5 fl (35.1-43.9); Red Blood Count 4.47 M/mm3 (4.2-5.4); White Blood Count 9.3 K/mm3 (4.4-11.0)
[2019-09-18 13:35] LABS: AST(SGOT) 17 U/L (15-37); Alanine Aminotransfer ALT/SGPT 25 U/L (13-56); Albumin, Serum 3.6 g/dL (3.2-5.0); Alkaline Phosphatase 50 U/L (45-117); Anion Gap 7 (5-15); BUN 11 mg/dL (7-18); BUN/Creat Ratio 12.5 RATIO (10-20); Calcium,Total 8.9 mg/dL (8.5-10.1); Chloride 105 mmol/L (98-107); Creatinine, Serum 0.88 mg/dL (0.55-1.02); EST Glomerular Filtration Rate 67 mL/min (>60); Est Glom Filt Rate - Afr Amer 81 mL/min (>60); Globulin 3.6 g/dL (2.2-4.2); Glucose 91 mg/dL (74-106); Potassium 4.5 mmol/L (3.5-5.1); Protein, Total 7.2 g/dL (6.4-8.2); Sodium Level 142 mmol/L (136-145); Thyroid Stim Hormone (TSH) 1.37 uIU/mL (0.358-3.74); Vitamin D,25 Hydroxy 21.9 ng/mL (29.95-100.01)
== END ==
PROVIDERS: Family Provider Family Medicine Geriatric Medicine; PCP Family Medicine Geriatric Medicine; Visit Provider Family Medicine Geriatric Medicine
DX: I10 Essential (primary) hypertension (principal); E55.9 Vitamin D deficiency, unspecified
CPT/HCPCS: 36415; 80053; 82306; 84443; 85025; 97113

== ENCOUNTER → 2019-10-01 09:52 | Outpatient (CLI) | payer MEDICARE, OTHER, SELFPAY ==
--- NOTE | 2019-10-01 10:02 | BD_ITS ---
STUDY: DUAL ENERGY X-RAY ABSORPTIOMETRY / DXA REASON FOR EXAM: Female, 69 years old. The patient is postmenopausal. Loss of height. TECHNIQUE: Bone Mineral Density (BMD) measurements of lumbar spine and bilateral hips were obtained. COMPARISON: Comparison is made with prior study dated September 29, 2016. FINDINGS: Lumbar Spine (L1-L4): g/cm2 (0.877) / T-score (-2.4) / Z-score (-0.8) Findings are suggestive of osteopenia with a high fracture risk. Left Femur Total: g/cm2 (0.748) / T-score (-2.1) / Z-score (-0.6) Left Femoral Neck: g/cm2 (0.693) / T-score (-2.5) / Z-score (-0.8) Right Femur Total: g/cm2 (0.746) / T-score (-2.1) / Z-score (-0.6) Right Femoral Neck: g/cm2 (0.698) / T-score (-2.4) / Z-score (-0.8) The T-Scores on the most recent prior examination were: Lumbar Spine (L1-L4): There has been improvement of bone density since the previous examination. Left Femur Total: which represents a worsening of 0.8%. Right Femur Total: which represents an improvement of 2.8%. BD/Dexa Bone Density Study IMPRESSION: The patient is considered osteopenic as outlined below according to World Nate Organization (WHO) criteria with a high fracture risk. There has been improvement of bone density since the previous examination. Reference Information: The T-score is the number of standard deviations above or below the standard which is normal for young adults at their peak bone mineral density. The World Health Organization (WHO) interprets the T-scores as follows: Above -1 Normal bone density Between -1 and -2.5 Osteopenia Equal to / or below -2.5 Osteoporosis As a practical clinical guideline, osteopenia may be graded as follows: Mild -1 through -1.5 Moderate -1.6 through -2.0 Severe -2.1 through -2.4 The Z-score is the number of standard deviations above or below age-matched controls. A Z-score of less than -1.5 would be considered abnormal. References: 1. NIH Osteoporosis and Related Bone Diseases http://www.osteo.org 2. International Society for Clinical Densitometry http://www.iscd.org 3. National Osteoporosis Foundation http://www.nof.org Electronically Signed: Jose Jennings, at 8:39 EST , Service support ,
== END ==
PROVIDERS: Family Provider Family Medicine Geriatric Medicine; PCP Family Medicine Geriatric Medicine; Referring Provider Family Medicine Geriatric Medicine; Visit Provider Family Medicine Geriatric Medicine
DX: Z78.0 Asymptomatic menopausal state (principal)
CPT/HCPCS: 77080; 97113

== ENCOUNTER 2019-10-18 10:30 | Outpatient (RCR) | payer MEDICARE, OTHER, SELFPAY ==
--- NOTE | 2019-08-28 11:47 | HP.PTEVAL ---
Patient's Visit Information SINDHU VILLALTA is a 68 year old F referred to Physical Therapy by Sánchez Segura MD with a diagnosis of LBP, LUMBAR DISC LESION. Date of Evaluation: 08/28/19 Physical Therapist: Lisa Jean Baptiste PT, Cert MDT - Visit Plan Frequency: 2-3x /Week Duration: 4-6 Weeks Plan: *NO BACK EXTENSION*. AQUATIC THERAPY FOR PAIN RELIEF, POSTURE CORRECTION/STRENGTHENING, INSTRUCTION IN APPROPRIATE BODY MECHANICS AND ACTIVITY MODIFICATIONS. DLS STARTING WITH A NEUTRAL SPINE PROGRESSING ROM TOLERATED. COTY LE ROM, STRETCHING AND STRENGTHENING. HEP INSTRUCTION. - Subjective Findings: Work/Leisure: RETIRED. Disability: NO. Present symptoms: LOW BACK, COTY HIP AND COTY THIGH PAIN. NO LE NUMBNESS OR TINGLING. Present since: ABOUT 2-3 MONTHS AGO SYMPTOMS FLARED UP. Pain Scale: WORST 7/10, LEAST 0/10. Currently: 4/10. Commenced as a result of: NO APPARENT REASON. Symptoms at onset: HIPS. Worse: DRIVING IN CERTAIN VEHICLES, SITTING ON HARD BENCH'S, BENDING. Better: HEATING PAD AND TYLONOL. LYING DOWN. Disturbed sleep: NO. Previous history/Previous treatment: BACK PAIN STARTED 20 OR MORE YEARS AGO. H/O A LITTLE BIT OF CHIROPRACTIC TREATMENTS. WENT BACK TO [facility]IROPRACTOR ABOUT 2 WEEKS AGO - FELT HORRIBLE THE NEXT DAY SO WENT TO [facility]AP[facility] - HELPED. NO LOW BACK PHYSICAL THERAPY. NO LOW BACK SURGERY. NO LOW BACK MIRTHA. Coughing/sneezing/straining: POSITIVE. Gait: HAS TO PROTECT LEFT SIDE WITH WALKING. DECREASED PACE. DID A LOT OF WALKING AT [email or web address] LAST WEEK. Difficulty initiating urinatin: NO. Accidents: NO. Unexplained weight loss: NO. Imaging: RECENT LUMBAR X-RAY AND MRI. MRI AT [place]. X-RAY AT [facility]: IMPRESSION: Grade 2 anterolisthesis of L4 relative to L5. . Severe narrowing of the L4-5 disc space with sclerosis of the adjacent. endplates. IMPRESSION: Normal x-ray examination of the pelvis and bilateral hips. 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 MODERATE BILATERAL FORAMINAL STENOSIS AT THIS LEVEL. PMH: H/O NECK PROBLEMS - ANXIOUS ABOUT IT GETTING FLARED UP. OSTEOPOROSIS. Recent major surgery: HYSTERECTOMY 2002. OTHER: PAIN MGMT CONSULT PENDING NEXT WEEK. ALSO REFERRED TO [facility] AND HAS HAD ONE VISIT WITH MORE PENDING. - Objective Sitting/Standing Posture: POOR. Lordosis: NORMAL. Lateral shift: NO. Relevant shift: N/A. Active Correction of posture: NE. Other Observations: INDEP GAIT INTO PT WITH NO GROSS DEVIATIONS NOTED. Motor deficit: COTY LE'S GROSSLY 5/5 WITH MMT'ING EXCEPT HIPS GRADED 4/5. Sensory deficit: COTY LE LIGHT TOUCH SENSATION INTACT AND SYMMETRICAL. ROM deficit: COTY LE'S WFL EXCEPT TIGHT HIP FLEXORS AND ROTATORS. MILDLY TIGHT COTY GASTROC SOLEUS COMPLEX'S. Reflexes: 2/3 COTY LE'S. Dural Signs: NEGATIVE COTY LE'S. Lumbar mvmt loss: flex - MOD - NE. ext - NT. R SG - MOD. L SG - MOD - PRODUCES LEFT HIP PAIN. Core strength: POOR. Palpation: NO ACUTE TENDERNESS IN LUMBAR REGION OR HIPS WITH LIGHT PALPATION. - Goals Goal 1:: DECREASE C/O LOW BACK AND COTY LE SX'S. Goal Time Frame: 4-6 Weeks Goal 2:: IMPROVE LIFTING, SITTING STANDING, SOCIAL LIFE AND HOMEMAKING FUNCTION. Goal Time Frame: 4-6 Weeks Goal 3:: INSTRUCT IN PROPHYLAXIS Goal Time Frame: 4-6 Weeks - Rehabilitation Potential Rehabilitation Potential: Fair - Anticipated Interventions Patient/Client Instruction: Educate patient on: Condition, Plan of Care, Risk Factors, Benefits of Fitness Program For the Purpose of:: To improve self management Therapeutic Exercise to Include: Strength training, Body mechanics, Postural training, In an aquatic setting, Dynamic Lumbar Stabilization Comment: *NO BACK EXTENSION*. BE CAREFUL WITH NECK CONDITION. PATIENT HAS A POOL AT HOME OPEN IN THE SUMMER. For the Purpose of:: To decrease pain, To improve muscle performance and motor function, To increase tolerance to activity/condition/position, To improve ability of physical actions for home/community/work/leisure Thank you for the opportunity to evaluate your patient. For Medicare and Medicare HMO plans, please review the plan of care and approve it. It will need to be FAXED BACK to us at [phone] for Medicare purposes. For Medicare only, by signing this I certify the plan of care. Please let me know if there are questions or concerns regarding this plan of care. Physician Signature: Date:
--- NOTE | 2019-10-18 11:11 | HP.PTEVAL_ITS ---
Patient's Visit Information SINDHU VILLALTA is a 69 year old F referred to Physical Therapy by Sánchez Segura MD with a diagnosis of LBP, LUMBAR DISC LESION. Date of Evaluation: 08/28/19 Physical Therapist: Lisa Jean Baptiste PT, Cert MDT - Visit Plan Frequency: 2-3x /Week Duration: 4-6 Weeks Plan: D/C TO [facility] HOME AND WATER EX PROGRAMS AT THIS POINT. PATIENT IS AGREEABLE. - Subjective Findings: Work/Leisure: RETIRED. Disability: NO. Present symptoms: LOW BACK, COTY HIP AND COTY THIGH PAIN. NO LE NUMBNESS OR TINGLING. Present since: ABOUT 2-3 MONTHS AGO SYMPTOMS FLARED UP. Pain Scale: WORST 7/10, LEAST 0/10. Currently: /10. Commenced as a result of: NO APPARENT REASON. Symptoms at onset: HIPS. Worse: DRIVING IN CERTAIN VEHICLES, SITTING ON HARD BENCH'S, BENDING. Better: HEATING PAD AND TYLONOL. LYING DOWN. Disturbed sleep: NO. Previous history/Previous treatment: BACK PAIN STARTED 20 OR MORE YEARS AGO. H/O A LITTLE BIT OF CHIROPRACTIC TREATMENTS. WENT BACK TO [facility] ABOUT 2 WEEKS AGO - FELT HORRIBLE THE NEXT DAY SO WENT TO [facility]AGE THERAPIST - HELPED. NO LOW BACK PHYSICAL THERAPY. NO LOW BACK SURGERY. NO LOW BACK MIRTHA. Coughing/sneezing/straining: POSITIVE. Gait: HAS TO PROTECT LEFT SIDE WITH WALKING. DECREASED PACE. DID A LOT OF WALKING AT [employer] LAST WEEK. Difficulty initiating urinatin: NO. Accidents: NO. Unexplained weight loss: NO. Imaging: RECENT LUMBAR X-RAY AND MRI. MRI AT [place]. X-RAY AT [facility]: IMPRESSION: Grade 2 anterolisthesis of L4 relative to L5. . Severe narrowing of the L4-5 disc space with sclerosis of the adjacent. endplates. IMPRESSION: Normal x-ray examination of the pelvis and bilateral hips. 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 MODERATE BILATERAL FORAMINAL STENOSIS AT THIS LEVEL. PMH: H/O NECK PROBLEMS - ANXIOUS ABOUT IT GETTING FLARED UP. OSTEOPOROSIS. Recent major surgery: HYSTERECTOMY 2002. OTHER: PAIN MGMT CONSULT PENDING NEXT WEEK. ALSO REFERRED TO [facility]IROPRACTOR AND HAS HAD ONE VISIT WITH MORE PENDING. - Pain Lumbar Spine Pain Intensity (Out of 10): 0 Comment: and into buttocks LLE Pain Intensity (Out of 10): 0 Comment: lateral hip Mid-Spine Pain Intensity (Out of 10): 0 RLE Pain Intensity (Out of 10): 0 Comment: lateral hip - Objective Sitting/Standing Posture: POOR. Lordosis: NORMAL. Lateral shift: NO. Relevant shift: N/A. Active Correction of posture: NE. Other Observations: INDEP GAIT INTO PT WITH NO GROSS DEVIATIONS NOTED. Motor deficit: COTY LE'S GROSSLY 5/5 WITH MMT'ING EXCEPT HIPS GRADED 4/5. Sensory deficit: COTY LE LIGHT TOUCH SENSATION INTACT AND SYMMETRICAL. ROM deficit: COTY LE'S WFL EXCEPT TIGHT HIP FLEXORS AND ROTATORS. MILDLY TIGHT COTY GASTROC SOLEUS COMPLEX'S. Reflexes: 2/3 COTY LE'S. Dural Signs: NEGATIVE COTY LE'S. Lumbar mvmt loss: flex - MOD - NE. ext - NT. R SG - MOD. L SG - MOD - PRODUCES LEFT HIP PAIN. Core strength: POOR. Palpation: NO ACUTE TENDERNESS IN LUMBAR REGION OR HIPS WITH LIGHT PALPATION. - Goals Goal 1:: DECREASE C/O LOW BACK AND COTY LE SX'S. Goal Time Frame: 4-6 Weeks Goal 2:: IMPROVE LIFTING, SITTING STANDING, SOCIAL LIFE AND HOMEMAKING FUNCTION. Goal Time Frame: 4-6 Weeks Goal 3:: INSTRUCT IN PROPHYLAXIS Goal Time Frame: 4-6 Weeks - Rehabilitation Potential Rehabilitation Potential: Fair - Anticipated Interventions Patient/Client Instruction: Educate patient on: Condition, Plan of Care, Risk Factors, Benefits of Fitness Program For the Purpose of:: To improve self management Therapeutic Exercise to Include: Strength training, Body mechanics, Postural training, In an aquatic setting, Dynamic Lumbar Stabilization Comment: *NO BACK EXTENSION*. BE CAREFUL WITH NECK CONDITION. PATIENT HAS A POOL AT HOME OPEN IN THE SUMMER. For the Purpose of:: To decrease pain, To improve muscle performance and motor function, To increase tolerance to activity/condition/position, To improve ability of physical actions for home/community/work/leisure Thank you for the opportunity to evaluate your patient. For Medicare and Medicare HMO plans, please review the plan of care and approve it. It will need to be FAXED BACK to us at [phone] for Medicare purposes. For Medicare only, by signing this I certify the plan of care. Please let me know if there are questions or concerns regarding this plan of care. Physician Signature: Date:
--- NOTE | 2019-10-25 10:16 | HP.PTDCSUM ---
HP - PT D/C Summary It has been my pleasure to treat SINDHU VILLALTA under orders from Sánchez Segura MD, for the diagnosis of LBP, LUMBAR DISC LESION for a total of 14 visit(s). Discharge Date: 10/18/19 Please see the following information for a summary of their discharge status. - Subjective Subjective: I WAS DOING REALLY WELL UNTIL MONDAY WHEN IT GOT TRIGGERED FOR NO APPARENT REASON AND IT HASN'T BEEN GOOD SINCE THEN. PATIENT IS REQUESTING TO SHORTEN PT SESSION TO GO TO MASSAGE TODAY. STATES SHE HAD 3 DAYS THE END OF LAST WEEK WITH NO PAIN AND IS DEFINATELY BETTER OVER-ALL. STATES SHE HAS BEEN ABLE TO START COMING ON HER OWN TO THE POOL AND IT WENT WELL. STATES SHE IS NOT SURE SHE TOLERATED LAST POOL PROGRESSIONS WELL (LUNGES) AND QUESTIONING IF SHE SHOULD JUST CONTINUE ON HER OWN AT THIS POINT. JUST CAME HERE TODAY FROM A [facility] [place]. STATES IT TRIGGERED SOMETHING IN HER UPPER BACK/RIGHT SHOULDER AND THEREFORE WANTS TO GO TO [facility] THERAPY. HEP HAS BEEN TRIGGERING TOO SO HASN'T BEEN DOING MUCH OF THOSE. PATIENT REPORTS HE PAIN IS DEFINATELY NOT CONSTANT AND NOT INTENSE IT WAS BEFORE. MILADIS'T WITH DR. CHU IN NOVEMBER. STATES SHE WOULD LIKE TO GO TO PAIN MGMT IN [place] AND HAVE A SURGICAL CONSULT. - Pain Lumbar Spine Pain Intensity (Out of 10): 0 LLE Pain Intensity (Out of 10): 0 Mid-Spine Pain Intensity (Out of 10): 0 RLE Pain Intensity (Out of 10): 0 RIGHT SHOULDER BLADE AREA Pain Intensity (Out of 10): 4 - Objective Objective/Function: PATIENT IS INDEP WITH A POOL PROGRAM NOW THAT SHE CAN TOLERATE AND SHE HAS BEEN IMPROVING UNTIL FLARE UP MONDAY. STILL MUCH BETTER OVER-ALL SINCE STARTING PT. UPON EXAM TODAY THERE ARE NO NEW LUMBAR OR LE SX'S SINCE INITIAL EVAL AND LUMBAR FLEXION ROM AND CORE STRENGTH HAVE IMPROVED: Lumbar mvmt loss: flex - NIL - NE. ext - NT. R SG - MOD. L SG - MOD - PRODUCES RIGHT HIP PAIN TODAY. Core strength: FAIR - Goals Goal 1:: DECREASE C/O LOW BACK AND COTY LE SX'S. Goal Progress: Goal Met Goal 2:: IMPROVE LIFTING, SITTING STANDING, SOCIAL LIFE AND HOMEMAKING FUNCTION. Goal Progress: Goal Met Goal 3:: INSTRUCT IN PROPHYLAXIS Goal Progress: Goal Met - Plan Plan: D/C TO [facility] HOME AND WATER EX PROGRAMS AT THIS POINT. PATIENT IS AGREEABLE. - D/C Information If there are questions or concerns regarding this patient's physical therapy, please feel free to call me at [phone]. Thank you for the referral of this patient. Sincerely, Lisa Jean Baptiste, PT, Cert MDT
== END 2019-10-18 19:00 | disposition home or self-care (01) ==
LOC: PT 10:30
PROVIDERS: Family Provider Family Medicine Geriatric Medicine; PCP Family Medicine Geriatric Medicine; Visit Provider Family Medicine Geriatric Medicine
DX: M54.5 Low back pain (principal); M51.85 Other intervertebral disc disorders, thoracolumbar region
CPT/HCPCS: 97113; 97162; 97530

== ENCOUNTER → 2020-08-14 | Outpatient (CLI) | payer MEDICARE, OTHER, SELFPAY ==
--- NOTE | 2020-08-14 13:59 | US_ITS ---
STUDY: THYROID ULTRASOUND REASON FOR EXAM: Female, 69 years old. NODULES TECHNIQUE: Ultrasound evaluation of the thyroid was performed with real-time and static tovar-scale imaging. COMPARISON: 05/28/2015 FINDINGS: RIGHT LOBE: The right lobe of the thyroid gland measures 4.1 x 1.3 x 1.5 cm. There is a homogeneous echotexture. Nodule 1:6 x 4 x 6 mm mixed cystic and solid hypoechoic wider than tall smoothly marginated nodule with no echogenic foci (TR 3) in the mid right lobe. Nodule 2:6 x 3 x 5 mm solid hypoechoic wider than tall smoothly marginated nodule with no echogenic foci (TR 4) in the anterior right lobe. LEFT LOBE: The left lobe of the thyroid gland measures 4.6 x 1.9 x 1.7 cm. There is a homogeneous echotexture. Nodule 3: 20 x 11 x 16 mm cystic anechoic wider than tall smoothly marginated nodule with no echogenic foci (TR 1) in the left lobe consistent with a colloid cyst. Nodule 4:12 x 10 x 12 mm solid hypoechoic wider than tall smoothly marginated nodule with no echogenic foci (TR 4) in the superior left lobe consistent with an adenoma. ISTHMUS: The isthmus measures 2 mm thick. . The regional lymph nodes are normal. US/Thyroid IMPRESSION: Multinodular thyroid gland and follow-up ultrasound is recommended in one year. Electronically Signed: Ra London MD at 10:49 EDT Tel , Service support ,
== END | disposition home or self-care (01) ==
LOC: US 13:56
PROVIDERS: PCP Internal Medicine; Referring Provider Internal Medicine; Visit Provider Internal Medicine
DX: E04.1 Nontoxic single thyroid nodule (principal)
CPT/HCPCS: 76536

== ENCOUNTER → 2021-05-13 14:18 | Outpatient (CLI) | payer MEDICARE, OTHER, SELFPAY ==
--- NOTE | 2021-05-13 14:20 | BI_ITS ---
MAMMOGRAPHY - BILATERAL SCREENING REASON FOR EXAM: Female, 70 years old. Routine annual screening examination. PERTINENT HISTORY: Non-contributory. TECHNIQUE: Digital bilateral breast jam (3D mammographic acquisition) in the CC and MLO projections. 2-D mediolateral oblique (MLO) and craniocaudad (CC) views of both breasts were obtained. CAD: Full Field Digital Mammography with Computer Added Detection was performed. COMPARISON: Comparison is made with prior study dated 11/01/2018 and 09/29/2016. FINDINGS: Breast Composition: The breasts are heterogeneously dense, which may obscure small masses. There are no dominant masses or suspicious calcifications. No other significant abnormalities are identified. There has been no significant change since the prior study. BI/SCRN MAMM (CAD)W/JAM BILAT IMPRESSION: Stable bilateral screening mammogram. Yearly follow-up mammogram recommended. (A) ASSESSMENT CATEGORY: BIRADS Category 1: Negative. A letter regarding these results will be sent to the patient by the facility within 30 days. Approximately 10% of breast cancers are not detected by mammography. A normal mammogram should not delay biopsy of a clinically suspicious abnormality. [id number] Electronically Signed: Jose Jennings MD at 15:25 EDT , Service support ,
--- NOTE | 2021-05-13 14:27 | BD_ITS ---
STUDY: DUAL ENERGY X-RAY ABSORPTIOMETRY / DXA REASON FOR EXAM: Female, 70 years old. 627.8Menopausal postmenopausalBONE DENSITY REASON FOR EXAM TECHNIQUE: Bone Mineral Density (BMD) measurements of lumbar spine and bilateral hips were obtained. COMPARISON: Comparison is made with prior study dated 10/01/2019. FINDINGS: Lumbar Spine (L1-L4): g/cm2 (0.870) / T-score (-2.5) / Z-score (-0.8) Findings are suggestive of osteopenia with a high fracture risk. Left Femur Total: g/cm2 (0.759) / T-score (-2.0) / Z-score (-0.4) Left Femoral Neck: g/cm2 (0.671) / T-score (-2.6) / Z-score (-0.9) Right Femur Total: g/cm2 (0.741) / T-score (-2.1) / Z-score (-0.6) Right Femoral Neck: g/cm2 (0.697) / T-score (-2.5) / Z-score (-0.7) The T-Scores on the most recent prior examination were: Lumbar Spine (L1-L4): There has been worsening of bone density since the previous examination. Left Femur Total: which represents an improvement of 1.5%. Right Femur Total: which represents a worsening of 0.7%. BD/Dexa Bone Density Study IMPRESSION: The patient is considered osteoporotic as outlined below according to World [place] Organization (WHO) criteria with a high fracture risk. There has been worsening of bone density since the previous examination. Reference Information: The T-score is the number of standard deviations above or below the standard which is normal for young adults at their peak bone mineral density. The World Health Organization (WHO) interprets the T-scores as follows: Above -1 Normal bone density Between -1 and -2.5 Osteopenia Equal to / or below -2.5 Osteoporosis As a practical clinical guideline, osteopenia may be graded as follows: Mild -1 through -1.5 Moderate -1.6 through -2.0 Severe -2.1 through -2.4 The Z-score is the number of standard deviations above or below age-matched controls. A Z-score of less than -1.5 would be considered abnormal. References: 1. NIH Osteoporosis and Related Bone Diseases www osteo.org 2. International Society for Clinical Densitometry www iscd.org 3. National Osteoporosis Foundation www nof.org Electronically Signed: Jose Jennings MD at 15:41 EDT , Service support ,
== END ==
PROVIDERS: PCP Internal Medicine; Referring Provider Internal Medicine; Visit Provider Internal Medicine
DX: Z78.0 Asymptomatic menopausal state (principal); Z12.31 Encounter for screening mammogram for malignant neoplasm of breast
CPT/HCPCS: 77063; 77067; 77080

== ENCOUNTER → 2021-11-09 06:40 | Outpatient (CLI) | payer MEDICARE, OTHER, SELFPAY ==
--- NOTE | 2021-11-09 06:46 | ECHOD_ITS ---
Reason For Study: CHEST PAIN Procedure This was a 2D Doppler, Color Flow transthoracic echocardiogram. Exam performed in department. Left Ventricle Normal LV size. Left ventricular systolic function is normal. The estimated ejection fraction is 65 %. Stage 1 diastolic dysfunction. No regional wall motion abnormalities noted. Right Ventricle Normal RV size. Normal systolic function. Atria Normal left atrium. Normal right atrium. Mitral Valve Normal mitral valve. Tricuspid Valve Normal tricuspid valve. Mild (1+) eccentric tricuspid valve insufficiency. Pulmonary artery systolic pressure is 35 mmHg. Aortic Valve Normal aortic valve. Trisinus/trileaflet aortic valve. Pulmonic Valve Normal pulmonic valve. Great Vessels Normal aortic root. The pulmonary artery is normal size. Normal inferior vena cava. Pericardium/Pleural No pericardial effusion. MMode/2D Measurements & Calculations LVIDd: 4.2 cm IVSd: 0.93 cm Ao root diam: 2.9 cm LVIDs: 2.6 cm LVPWd: 0.93 cm RVDd: 2.6 cm FS: 39.2 % LAV(MOD-bp): 45.1 ml LA A4 area: 14.5 cm2 LA dimension(2D): 3.0 cm LAV(MOD-bp) Indexed: 28.9 ml/m2 LAV(MOD-sp2): 42.5 ml LAV(MOD-sp4): 38.8 ml RA A4 area: 11.7 cm2 Time Measurements MV dec time: 0.23 sec Doppler Measurements & Calculations MV E max sergei: 89.5 cm/sec Lat Peak E' Sergei: 7.6 cm/sec Med Peak E' Sergei: 7.4 cm/sec MV A max sergei: 100.2 cm/sec E/E' lat: 11.9 E/E' med: 12.1 MV E/A: 0.89 Ao V2 max: 120.9 cm/sec LV V1 max: 111.6 cm/sec PA V2 max: 84.1 cm/sec Ao max P.8 mmHg LV V1 max P.0 mmHg TR max sergei: 269.6 cm/sec TR max P.1 mmHg ECHO/Echo Complete Interpretation Summary Normal LV size. Left ventricular systolic function is normal. The estimated ejection fraction is 65 %. Stage 1 diastolic dysfunction. Pulmonary artery systolic pressure is 35 mmHg. Ordering Physician: Davina Aguirre Referring Physician: Davina Aguirre Performed By: Rachel Carbone RDCS, RVT
--- NOTE | 2021-11-09 12:40 | STRESSREP ---
Stress Test Report Exercise myocardial perfusion stress test. 71-year-old lady with a history of chest pain. Stress protocol: Resting EKG demonstrates normal sinus rhythm with a rate of 61 bpm normal intervals are noted resting blood pressure is 142/78 mmHg. The patient exercised according to regular Rusty protocol for total duration of 6 minutes and 18 seconds. The maximum heart rate attained 126 bpm which was 85% of max impact on heart rate the maximum workload was 7.8 metabolic equivalents. At rest there were no ST or T wave changes noted to suggest ischemia and at peak exercise upsloping ST changes only were noted with did not meet the criteria for ischemia. No clinical angina was noted the test was terminated due to leg fatigue. The peak blood pressure was 164/82 mmHg. There was minimal chest discomfort noted at peak exercise. The rate-pressure product was 19,680. Myocardial perfusion protocol. 11.0 mCi of technetium 99m sestamibi was injected at rest. Patient exercised according to regular Rusty protocol for 6 minutes and at peak exercise 33.0 mCi of technetium 99m sestamibi was injected stress images were obtained stress and rest images were reconstructed and compared in the short axis vertical long horizontal long axis. Gated images were also obtained. Perfusion SPECT analysis: Review of the stress images demonstrate normal uptake of tracer noted in all areas of the myocardium. The resting images similarly demonstrate normal uptake of tracer noted in all areas of the myocardium. No areas of reversibility are noted to suggest ischemia and no previous infarct is noted. Gated SPECT analysis: The gated ejection fraction is 83%. Conclusion: Normal exercise myocardial perfusion stress test at a moderate workload. Preserved ejection fraction.
== END ==
PROVIDERS: PCP Internal Medicine; Referring Provider Internal Medicine; Visit Provider Internal Medicine
DX: R07.9 Chest pain, unspecified (principal)
CPT/HCPCS: 78452; 93017; 93306; A9500; A4216

== ENCOUNTER 2022-01-26 09:05 | Outpatient (CLI) | payer MEDICARE, OTHER, SELFPAY ==
--- NOTE | 2022-01-26 14:00 | PFTCOMP_ITS ---
COMPLETE PULMONARY FUNCTION TEST INTERPRETATION Brief HPI: Patient is a 71 year old female, currently under the care of Dr. Santana, who presents to [facility] for complete pulmonary function tests secondary to diagnosis of dyspnea. Respiratory therapist reports good effort and reproducible results. Interpretation: Forced expiration spirometry shows no large airways obstructive ventilatory defect with an FEV1 of 104% predicted. There is no significant bronchodilator response by strict ATS criteria. Spirograms are of good quality and plateau normally. The respiratory flow volume loop shows a normal pattern. Lung volumes by body plethysmography show a normal total lung capacity at 3.67 L, 86% predicted. All other lung volumes are within normal limits. Diffusion capacity by carbon monoxide is normal at 86% predicted. The airway resistance is slightly elevated. No previous pulmonary function tests were available for review. Impression: Grossly normal pulmonary function test
== END 2022-01-26 23:59 | disposition home or self-care (01) ==
LOC: PSN 09:08
PROVIDERS: PCP Internal Medicine; Referring Provider Internal Medicine Critical Care Medicine; Visit Provider Internal Medicine Critical Care Medicine
DX: R06.02 Shortness of breath (principal)
CPT/HCPCS: 94060; 94726; 94729

== ENCOUNTER 2022-01-31 12:23 | Outpatient (CLI) | payer MEDICARE, OTHER, SELFPAY ==
[2022-01-31 13:05] VITALS: PULSE 74; PULSE 79; PULSE 90; PULSE 96; PULSE 97; PULSE 99; O2SAT 92; O2SAT 93; O2SAT 95; O2SAT 96; O2SAT 97
--- NOTE | 2022-02-01 08:48 | PCM.PSN.6M ---
PSN 6 Minute Walk Test 6 Minute Walk Test 6 Minute Walk Test: 6 Minute Walk Test PSN:6-Minute Walk Test Start: 01/31/22 13:05 Freq: Status: Active Protocol: RESP.6MINW Document 01/31/22 13:05 FR (Rec: 01/31/22 13:08 FR [id number]) 6 Minute Walk Test Date Performed 01/31/22 Time Performed 12:30 Height 5 ft 1 in Weight: 56.699 kg Weight in Pounds 125.[address]: Dr. Santana Assistive device used: None Pre-test Oxygen Delivery Method Room Air Pulse Ox (%) 96 Pulse Rate (60-100 beats/min) 74 Dyspnea Rayo Scale (0-10) 1 Exertion Rayo Scale (6-20) 6 1st minute Oxygen Delivery Method Room Air Pulse Ox (%) 95 Pulse Rate (60-100 beats/min) 90 2nd minute Oxygen Delivery Method Room Air Pulse Ox (%) 92 Pulse Rate (60-100 beats/min) 96 3rd minute Oxygen Delivery Method Room Air Pulse Ox (%) 92 Pulse Rate (60-100 beats/min) 97 4th minute Oxygen Delivery Method Room Air Pulse Ox (%) 93 Pulse Rate (60-100 beats/min) 99 5th minute Oxygen Delivery Method Room Air Pulse Ox (%) 93 Pulse Rate (60-100 beats/min) 99 6th minute Oxygen Delivery Method Room Air Pulse Ox (%) 93 Pulse Rate (60-100 beats/min) 97 Dyspnea Rayo Scale (0-10) 3 Exertion Rayo Scale (6-20) 9 Post-test Oxygen Delivery Method Room Air Pulse Ox (%) 97 Pulse Rate (60-100 beats/min) 79 Full Laps Walked 19 Partial Lap, Number of Tiles Walked 11 Total Distance Walked (ft) 1132 Interpretation Interpretation: The patient ambulated 1132 feet over the course of 6 minutes beginning on room air without assistive devices. Pretesting oxygen saturation was noted to be 96% on room air. With ambulation, the mina oxygen saturation was 92%. There was no significant exertional oxygen desaturation. Recommendations Recommendations: There is no indication for the use of supplemental oxygen at this time.
== END 2022-01-31 23:59 | disposition home or self-care (01) ==
LOC: PSN 12:24
PROVIDERS: PCP Internal Medicine; Referring Provider Internal Medicine Critical Care Medicine; Visit Provider Internal Medicine Critical Care Medicine
DX: R06.02 Shortness of breath (principal)
CPT/HCPCS: 94618

== ENCOUNTER → 2022-12-06 | Outpatient (CLI) | payer MEDICARE, OTHER, SELFPAY ==
[2022-12-06 10:19] LABS: Absolute Lymphocyte Count 2.11 X10^3/uL (0.83-4.51); Absolute Neutrophil Count 3.5 X10^3/uL (2.0-7.7); Basophil# 0.05 X10^3/uL; Basophil% 0.8 % (0-1); Eosinophils% 3.2 % (0-5); Hematocrit 41.2 % (37-47); Hemoglobin 13.8 g/dL (12.0-15.0); Lymphocyte # 2.11 X10^3/ul (0.83-4.51); Lymphocyte % 33.8 % (19-41); Mean Corp Hgb Conc 33.5 g/dL (32-36); Mean Corpuscular Hgb 31.2 pg (27.0-32.0); Mean Corpuscular Volume 93.2 fL (81-99); Mean Platelet Vol. 10.6 fl (6.2-12.0); Monocyte# 0.42 X10^3/uL; Monocyte% 6.7 % (0-10); NRBC Flagged by Analyzer 0 % (0-5); Neutrophil # 3.45 X10^3/uL (2.7-7.7); Neutrophil % 55.2 % (47-70); Platelet Count 312 K/mm3 (150-450); RBC Distribution Width CV 12.5 % (11.6-14.6); RBC Distribution Width SD 43.1 fl (35.1-43.9); Red Blood Count 4.42 M/mm3 (4.2-5.4); White Blood Count 6.3 K/mm3 (4.4-11.0)
[2022-12-06 10:22] LABS: Potassium 4.3 mmol/L (3.5-5.1)
== END | disposition home or self-care (01) ==
LOC: LABSPEC 10:00
PROVIDERS: PCP Internal Medicine; Visit Provider Internal Medicine
DX: E78.5 Hyperlipidemia, unspecified (principal); D72.829 Elevated white blood cell count, unspecified
CPT/HCPCS: 84132; 85025

== ENCOUNTER → 2023-05-17 | Outpatient (CLI) | payer MEDICARE, OTHER, SELFPAY ==
--- NOTE | 2023-05-17 09:14 | BI_ITS ---
MAMMOGRAPHY - BILATERAL SCREENING REASON FOR EXAM: Female, 72 years old. Routine annual screening examination. PERTINENT HISTORY: Non-contributory. TECHNIQUE: Digital bilateral breast jam (3D mammographic acquisition) in the CC and MLO projections. 2-D mediolateral oblique (MLO) and craniocaudad (CC) views of both breasts were obtained. CAD: Full Field Digital Mammography with Computer Added Detection was performed. COMPARISON: Comparison is made with prior study dated May 13, 2021 and November 01, 2018. FINDINGS: Breast Composition: The breasts are heterogeneously dense, which may obscure small masses. There are no dominant masses or suspicious calcifications. No other significant abnormalities are identified. There has been no significant change since the prior study. BI/SCRN MAMM (CAD)W/JAM BILAT IMPRESSION: Stable bilateral screening mammogram. Yearly follow-up mammogram recommended. (A) ASSESSMENT CATEGORY: BIRADS Category 1: Negative. A letter regarding these results will be sent to the patient by the facility within 30 days. Approximately 10% of breast cancers are not detected by mammography. A normal mammogram should not delay biopsy of a clinically suspicious abnormality. [id number] Electronically Signed: Jose Jennings MD at 11:19 EDT ,
--- NOTE | 2023-05-17 09:25 | BD_ITS ---
STUDY: DUAL ENERGY X-RAY ABSORPTIOMETRY / DXA REASON FOR EXAM: Female, 72 years old. [id number] TECHNIQUE: Bone Mineral Density (BMD) measurements of lumbar spine and bilateral hips were obtained. COMPARISON: Comparison is made with prior study dated May 13, 2021. FINDINGS: Lumbar Spine (L1-L4): g/cm2 (0.719) / T-score (-2.7) / Z-score (-0.4) Findings are suggestive of osteoporosis with a high fracture risk. Left Femur Total: g/cm2 (0.715) / T-score (-1.9) / Z-score (-0.2) Left Femoral Neck: g/cm2 (0.560) / T-score (-2.6) / Z-score (-0.6) Right Femur Total: g/cm2 (0.693) / T-score (-2.0) / Z-score (-0.3) Right Femoral Neck: g/cm2 (0.584) / T-score (-2.4) / Z-score (-0.4) The T-Scores on the most recent prior examination were: Lumbar Spine (L1-L4): There has been worsening of bone density since the previous examination. Left Femur Total: which represents an improvement of 2.1%. Right Femur Total: which represents an improvement of 1.4%. BD/Dexa Bone Density Study IMPRESSION: The patient is considered osteoporotic as outlined below according to World Nate Organization (WHO) criteria with a high fracture risk. There has been improvement of bone density since the previous examination. Reference Information: The T-score is the number of standard deviations above or below the standard which is normal for young adults at their peak bone mineral density. The World Health Organization (WHO) interprets the T-scores as follows: Above -1 Normal bone density Between -1 and -2.5 Osteopenia Equal to / or below -2.5 Osteoporosis As a practical clinical guideline, osteopenia may be graded as follows: Mild -1 through -1.5 Moderate -1.6 through -2.0 Severe -2.1 through -2.4 The Z-score is the number of standard deviations above or below age-matched controls. A Z-score of less than -1.5 would be considered abnormal. References: 1. NIH Osteoporosis and Related Bone Diseases www osteo.org 2. International Society for Clinical Densitometry www iscd.org 3. National Osteoporosis Foundation www nof.org Electronically Signed: Jose Jennings MD at 10:48 EDT ,
== END | disposition home or self-care (01) ==
LOC: OPBI 09:13
PROVIDERS: PCP Internal Medicine; Referring Provider Internal Medicine; Visit Provider Internal Medicine
DX: Z12.31 Encounter for screening mammogram for malignant neoplasm of breast (principal); Z78.0 Asymptomatic menopausal state
CPT/HCPCS: 77063; 77067; 77080

== ENCOUNTER 2024-01-18 10:30 | Outpatient (RCR) | payer MEDICARE, OTHER, SELFPAY ==
--- NOTE | 2023-10-17 09:10 | HP.PTEVAL_ITS ---
Patient's Visit Information Visit Information Visit Information: SINDHU VILLALTA is a 73 year old F referred to Physical Therapy by Dr. Davina Aguirre DO with a diagnosis of RIGHT SHOULDER PAIN ,IMPINGEMENT SYNDROME. Date of Evaluation: 10/17/23 Physical Therapist: Vargas Hanna PT, Cert MDT, OCS Visit Plan Frequency: 2x /Week Duration: 4 Weeks Plan: PT INVTERVENTIONS RTC /SCAPULAR STRENGTHENING ,ECCENTRIC RTC,POSTRURAL EX'S AND MODALTIES Subjective Subjective: This 73 y/o female presents to physical therapy with right shoulder pain. Patient has had shoulder pain ~ 2months probably [place] Patient seen DR drew PT and x-rays-. Patient pain located right lateral deltoid. Described as ache . Patient pain worse with lifting arm OH , above 90 degrees affects housework tasks and self hygiene. Patient pain better at rest. Patient pain was worse with unable to raise arm. Patient denies paresthesia/tingling. Patient pain affects QOL and function . Patient goals to decrease pain. SOCIAL: VOCATION: retired Pain Right Shoulder: Pain Intensity (Out of 10): 4 Pain Intensity Range: 10 Comment: movement Objective Objective: POSTURE: mild shoulder forward PALPATION: unremarkable NEURO: denies paresthesia/tingling AROM: shoulder [id number] degrees ,abduction 150 degrees ( pain~ 90 degrees) ,ER 90 degrees ,IR MMT: ( peak force) infraspinatus 9.2, ,supraspinatus 9.2 ,deltoid 5.2 CAPSULAR RESTRICTION: mild tight Special Tests R Shoulder External Rotation Lag Test - RC Tear: Negative R Shoulder Supine Impingement Test - RC Tear: Negative R Shoulder Lift Off Test - Subscapular Tear: Negative R Shoulder Drop Sign - IS Test: Negative R Shoulder Empty Can - SS: Positive R Shoulder Belly Press - SupScap: Negative R Shoulder Neer - Impingement: Positive R Shoulder Tian Moris - Impingement: Positive Balance/Special Test Scores Quick DASH Score: 38.6350 Goals Goal 1:: Patient to be I with HEP for shoulder Goal Time Frame: 4-6 Weeks Goal 2:: Patient to demonstrate 50% improvement with decrease pain and improved function Goal Time Frame: 4-6 Weeks Goal 3:: Patient to improve peak force RTC and deltoid by 5-10 # to improve function with ADLS and OH activities Goal Time Frame: 4-6 Weeks Goal 4:: Patient to improve AROM without pain for ADLS and housework task above 90% Goal Time Frame: 4-6 Weeks Goal 5:: Patient to improve quick dash shoulder by 5 points to improve QOL Goal Time Frame: 4-6 Weeks Rehabilitation Potential Physical Therapy Diagnosis: Patient has right shoulder tendinopathy with pain with OH activities AROM , no pain at rest weakness RTC and deltoid from pain thus benefit from skilled PT Rehabilitation Potential: Good Anticipated Interventions Patient/Client Instruction: Educate patient on: Condition and Plan of Care For the Purpose of:: To decrease pain, To increase ROM, To improve muscle performance and motor function, To improve ability to perform ADL's, To increase tolerance to activity/condition/position, To improve ability of physical actions for home/community/work/leisure, To improve health of tissue, To decrease soft tissue restriction and To increase flexibility/ROM Therapeutic Exercise to Include: Strength training, Postural training, Flexibi lty training, Active ROM and Scapular Strength/Stabilization Comment: RTC For the Purpose of:: To decrease pain, To increase ROM, To improve muscle perf ormance and motor function, To improve ability to perform ADL's, To increase tolerance to activity/condition/position, To improve ability of physical actions for home/community/work/leisure, To improve health of tissue, To decrease soft tissue restriction, To increase flexibility/ROM and To improve tolerance to ADL's TENS: Yes IF ES: Yes Cryotherapy (ice pack, ice massage): Yes Thermo therapy (hot pack): Yes Ultrasound (thermal/non thermal): Yes For the Purpose of:: To decrease pain, To decrease swelling/inflammation, To improve nutrient delivery to tissue, To increase oxygenation perfusion, To improve health of tissue and To decrease soft tissue restriction Text: Thank you for the opportunity to evaluate your patient. For Medicare and Medicare HMO plans, please review the plan of care and approve it. It will need to be FAXED BACK to us at [phone] for Medicare purposes. For Medicare only, by signing this I certify the plan of care. Please let me know if there are questions or concerns regarding this plan of care. Physician Signature: Date:
--- NOTE | 2023-12-14 10:21 | HP.PTREVAL_ITS ---
Re-Evaluation Intro: Dr. Davina Aguirre, DO, It has been my pleasure to treat SINDHU VILLALTA over the last 15 visits for RIGHT SHOULDER PAIN, IMPINGEMENT SYNDROME. Please see the progress note below for an update on the physical therapy plan of care! Subjective Subjective: Doing better gradually Objective Objective/Function: POSTURE: mild shoulder forward PALPATION: unremarkable NEURO: denies paresthesia/tingling AROM: shoulder [id number] degrees ,abduction 150 degrees ,ER 90 degrees ,IR T10 MMT: ( peak force) infraspinatus 14.7, ,supraspinatus 13.6 ,deltoid 16.6 CAPSULAR RESTRICTION: mild tight Plan Plan Plan: cont with POC PT INTERVENTIONS: RTC/SCAPULAR STRENGTHENING, ECCENTRIC RTC, POSTURAL EX'S AND MODALITIES PRN. Balance/Gait/Functional tests Balance/Special Test Scores Quick DASH Score: 31.8175 Goals Goals Goal 1:: Patient to be I with HEP for shoulder Goal Time Frame: 4-6 Weeks Goal Progress: Goal Met Goal 2:: Patient to demonstrate 80% improvement with decrease pain and improved function (new goal) Goal Time Frame: 4-6 Weeks Goal Progress: Progressing Goal 3:: Patient to improve peak force RTC and deltoid by 5-10 # to improve function with ADLS and OH activities( new goal) Goal Time Frame: 4-6 Weeks Goal Progress: Progressing Goal 4:: Patient to improve AROM without pain for ADLS and housework task above 90% Goal Time Frame: 4-6 Weeks Goal Progress: Progressing Goal 5:: Patient to improve quick dash shoulder by 5 points to improve QOL Goal Time Frame: 4-6 Weeks Goal Progress: Progressing Anticipated Interventions Anticipated Interventions Patient/Client Instruction: Educate patient on: Condition and Plan of Care For the Purpose of:: To decrease pain, To increase ROM, To improve muscle performance and motor function, To improve ability to perform ADL's, To increase tolerance to activity/condition/position, To improve ability of physical actions for home/community/work/leisure, To improve health of tissue, To decrease soft tissue restriction, To increase flexibility/ROM and To reduce risk of recurrence Therapeutic Exercise to Include: Strength training, Postural training, Flexibilty training, Active ROM and Scapular Strength/Stabilization Comment: RTC For the Purpose of:: To decrease pain, To increase ROM, To improve muscle performance and motor function, To improve ability to perform ADL's, To increase tolerance to activity/condition/position, To improve ability of physical actions for home/community/work/leisure, To improve health of tissue, To decrease soft tissue restriction, To increase flexibility/ROM and To improve tolerance to ADL's TENS: Yes IF ES: Yes Cryotherapy (ice pack, ice massage): Yes Thermo therapy (hot pack): Yes Ultrasound (thermal/non thermal): Yes For the Purpose of:: To decrease pain, To decrease swelling/inflammation, To improve nutrient delivery to tissue, To increase oxygenation perfusion, To improve health of tissue and To decrease soft tissue restriction Re-Evaluation Ending Re-evaluation ending: Please do not hesitate to contact me at [phone] by phone or Fax: if you have questions or concerns regarding this new plan of care! Sincerely, Vargas Hanna, PT, Cert MDT, OCS
--- NOTE | 2024-01-18 11:17 | HP.PTDCSUM ---
Discharge Summary D/C summary: It has been my pleasure to treat SINDHU VILLALTA referred by Dr. Davina Aguirre DO, with the diagnosis of RIGHT SHOULDER PAIN, IMPINGEMENT SYNDROME for a total of 23 visit(s). Discharge Date: 01/18/24 Please see the following information for a summary of their discharge status. Subjective Subjective: Doing well occasional twinge Able to do most activity Pain Right Shoulder: Pain Intensity (Out of 10): 0 Overall Improvement % Improvement: 95 Objective Objective/Function: POSTURE: mild shoulder forward PALPATION: unremarkable NEURO: denies paresthesia/tingling AROM: shoulder [id number] degrees ,abduction 160 degrees ,ER 90 degrees ,IR T10 `90 degrees MMT: ( peak force) [id number], ,supraspinatus 13.6 ,deltoid 18.6 CAPSULAR RESTRICTION: mild tight Goals Goal 1:: Patient to be I with HEP for shoulder Goal Progress: Goal Met Goal 2:: Patient to demonstrate 80% improvement with decrease pain and improved function (new goal) Goal Progress: Goal Met Goal 3:: Patient to improve peak force RTC and deltoid by 5-10 # to improve function with ADLS and OH activities( new goal) Goal Progress: Goal Met Goal 4:: Patient to improve AROM without pain for ADLS and housework task above 90% Goal Progress: Goal Met Goal 5:: Patient to improve quick dash shoulder by 5 points to improve QOL Goal Progress: Goal Met Plan Plan: D/C D/C Information Discharge Comments: hep and gym d/c sentence: If there are questions or concerns regarding this patient's physical therapy, please feel free to call me at [phone]. Thank you for the referral of this patient. Sincerely, Vargas Hanna, PT, Cert MDT, OCS Balance/Gait/Functional tests Balance/Special Test Scores Quick DASH Score: 2.2725 Improvement % Improvement: 95
== END 2024-01-18 12:57 | disposition home or self-care (01) ==
LOC: PT 10:30
PROVIDERS: PCP Internal Medicine; Visit Provider Internal Medicine
DX: M25.511 Pain in right shoulder (principal); M75.41 Impingement syndrome of right shoulder
CPT/HCPCS: 97110; 97162; 97530

== ENCOUNTER → 2024-02-13 | Outpatient (CLI) | payer MEDICARE, OTHER, SELFPAY ==
--- NOTE | 2024-02-13 13:14 | US_ITS ---
INDICATION: pelvic pain in female EXAMINATION: Ultrasound US Pelvis Non-OB Complete TECHNIQUE: Transabdominal pelvic ultrasound was performed. Grayscale, spectral waveform, and color flow Doppler evaluation of the adnexa. The patient refused endovaginal study. COMPARISON: No relevant prior comparison study available FINDINGS: UTERUS: Not visualized. Status post hysterectomy. RIGHT OVARY: Not visualized. LEFT OVARY: Not visualized. FREE FLUID: None. US/Pelvic (Non ) IMPRESSION: 1. Limited examination due to overlying bowel gas and without endovaginal study. 2. Status post hysterectomy. 3. Both ovaries not visualized. 4. No adnexal mass is seen. Electronically Signed: Andre Reagan MD at 15:17 EDT ,
== END | disposition home or self-care (01) ==
LOC: US 13:13
PROVIDERS: PCP Internal Medicine; Referring Provider Internal Medicine; Visit Provider Internal Medicine
DX: R10.2 Pelvic and perineal pain (principal)
CPT/HCPCS: 76856

== ENCOUNTER → 2024-03-11 | Outpatient (CLI) | payer MEDICARE, OTHER, SELFPAY ==
[2024-03-11 18:17] LABS: Thyroid Stim Hormone (TSH) 1.69 uIU/mL (0.358-3.74)
== END | disposition home or self-care (01) ==
LOC: MTLAB 16:51
PROVIDERS: PCP Internal Medicine; Referring Provider Internal Medicine; Visit Provider Internal Medicine
DX: K59.00 Constipation, unspecified (principal)
CPT/HCPCS: 36415; 84443

== ENCOUNTER → 2024-08-22 | Outpatient (CLI) | payer MEDICARE, OTHER, SELFPAY ==
--- NOTE | 2024-08-22 10:11 | US_ITS ---
EXAM: US ABDOMEN LIMITED, RIGHT UPPER QUADRANT CLINICAL INDICATION: RUQ US (RIGHT UPPER QUADRANT ULTRASOUND) -- RUQ pain TECHNIQUE: Real-time ultrasound of the right upper quadrant with image documentation. COMPARISON: No relevant prior studies available. FINDINGS: LIVER: 7 mm cyst noted within the left hepatic lobe. There is normal echotexture. No intrahepatic biliary ductal dilation. GALLBLADDER: Normal. No shadowing gallstone. No gallbladder wall thickening is demonstrated. No pericholecystic fluid. Negative sonographic Hood''s sign. COMMON BILE DUCT: No discrete common bile duct stone. The proximal common bile duct is normal size. PANCREAS: Unremarkable as visualized. No focal abnormality is demonstrated in the pancreas. Pancreatic duct is 2.6 mm in maximum diameter. RIGHT KIDNEY: Normal. There is no hydronephrosis. No shadowing calculus. No focal lesion or perinephric collection is demonstrated. US/Abdomen Limited IMPRESSION: No acute abnormality. Electronically Signed: Alden Carlson MD at 13:17 EDT ,
== END | disposition home or self-care (01) ==
LOC: US 10:08
PROVIDERS: PCP Internal Medicine; Referring Provider Internal Medicine; Visit Provider Internal Medicine
DX: R10.11 Right upper quadrant pain (principal)
CPT/HCPCS: 76705

== ENCOUNTER → 2024-10-03 | Outpatient (CLI) | payer MEDICARE, OTHER, SELFPAY ==
--- NOTE | 2024-10-03 16:42 | CT_ITS ---
EXAM: CT ABDOMEN WITH INTRAVENOUS CONTRAST CLINICAL INDICATION: PANCREATIC DUCT DILATED OF PANCREAS TECHNIQUE: Helically acquired images were obtained of the abdomen with intravenous contrast. This CT exam was performed using one or more of the following dose reduction techniques: automated exposure control, adjustment of the mA and/or kV according to patient size, and/or use of iterative reconstruction technique. CONTRAST: IV 75mL [id number] COMPARISON: Abdominal ultrasound, 08/22/2024 FINDINGS: LOWER THORAX: Mild dependent atelectasis in the lungs. Coronary artery calcifications. No cardiomegaly. No significant pericardial effusion. LIVER: Right hepatic lobe low-attenuation lesion measuring 1.3 cm is nonspecific. GALLBLADDER AND BILE DUCTS: No significant abnormality. No calcified gallstones. No gallbladder distention or wall edema. No intra- or extrahepatic biliary ductal dilation. PANCREAS: No significant abnormality. No focal pancreatic lesion is identified and there is no CT evidence of pancreatic ductal dilatation. SPLEEN: No significant abnormality. Normal size without focal cystic or solid mass. ADRENALS: No significant abnormality. No nodules. KIDNEYS AND URETERS: No significant abnormality. Normal renal size and position. No hydronephrosis. STOMACH AND BOWEL: No significant abnormality. No stomach or bowel distention. No focal inflammatory change. INTRAPERITONEAL SPACE: No significant abnormality. No ascites or other fluid collection. No free air. BONES/JOINTS: Degenerative changes in the spine to include degenerative anterolisthesis of L4 upon L5. No suspicious lytic or blastic abnormality. SOFT TISSUES: Small fat-containing umbilical hernia. VASCULATURE: Atherosclerosis. LYMPH NODES: No enlarged lymph nodes. CT/Abdomen WITH IV Contrast IMPRESSION: 1. No focal pancreatic lesion is identified and there is no CT evidence of pancreatic ductal dilatation. 2. Right hepatic lobe low-attenuation lesion measuring 1.3 cm is nonspecific. ACR White Paper guidelines (Harshal, et al. JACR 2017; 14(11):4737-1675.) recommend hepatic MR. Electronically Signed: Ketan Hayes DO at 21:08 EST ,
[2024-10-03 17:07] LABS: CREATININE FINGERSTICK < 1.0 mg/dL (0.55-1.02); EGFR FINGERSTICK > 60.0000 mL/min (>60)
== END | disposition home or self-care (01) ==
LOC: CT 16:37
PROVIDERS: PCP Internal Medicine; Referring Provider Internal Medicine; Visit Provider Internal Medicine
DX: T86.898 Other complications of other transplanted tissue (principal); X58.XXXA Exposure to other specified factors, initial encounter
CPT/HCPCS: 74160; Q9967

== ENCOUNTER 2025-03-17 11:30 | Outpatient (RCR) | payer MEDICARE, OTHER, SELFPAY ==
--- NOTE | 2025-02-18 13:31 | HP.PTEVAL_ITS ---
Patient's Visit Information Visit Information Visit Information: SINDHU VILLALTA is a 74 year old F referred to Physical Therapy by Dr. Rena Elkins DPM with a diagnosis of L drop foot/ arthritis L foot. Date of Evaluation: 02/18/25 Physical Therapist: KASSANDRA Davila Visit Plan Frequency: 1x/Week Duration: 6 Weeks Plan: 1X/ week for 6 weeks for L ankle stretching, strengthening, ROM, balance a nd proprioception with HEP HEP: gastroc towel stretch, seated heel and toe raises, towel toe curls, toe abduction AROM Subjective Subjective: Pt reports that she is probably having arthritis. She has very little pain sitting in her chair. Her L foot is worse when she sits and goes to get up for the first 30 steps and then it lessons. It used to go away after those first 30 steps but now it doesn't, it just lessons in intensity. She has it with walking all the time now even if it is a mild degree. She has no N&T. The Dr has not done any x-rays but will do some in about [address] wants her to put volteren on 4x/day and she started that last week. She feels the Volteren has helped a little bit. She feels that there is a strength difference between the right and the L. Pt has no pain with sleeping at night. She has some pain sleeping at night. She has pain across the dorsal aspect of the foot. She does have a swollen area on her foot. She never hurt her foot. She has had ongoing back issues for awhile but it never affected the foot before. Pain L foot pain: Pain Intensity (Out of 10): 1 Pain Intensity Range: 7 Comment: with walking into building today Objective Objective: Gait: walks with decrease stance time on the L LE. Ankle AROM: R DF 12 and L 11, R PF 66 and L 42, R INV 43 and L 52 and R EV 8 and L 9 Girth measurements: R med to later mal 20.9 and L 23, R fig 8 46 and L 46.2, and R met heads 21 and L 20.5 Ankle MMT: R DF 10.7 and L 4.8 R PF 10.8 and L 6.8 R INV 7.5 and L 3.8 R EV 7.5 and L 4.4 Pt is able to heel and toe raise B using 1 UE support X 10. The L ankle DF does fatigue faster with slightly decreased ROM the more toe raises that we do. L pinky toe does not abduct like the one on the R Balance/Special Test Scores Lower Extremity Functional Score: 55 Goals Goal 1:: I HEP Goal Time Frame: 6-8 Weeks Goal 2:: Increase L ankle AROM (at the time of the eval: Ankle AROM: R DF 12 and L 11, R PF 66 and L 42, R INV 43 and L 52 and R EV 8 and L 9). Goal Time Frame: 6-8 Weeks Goal 3:: Increase L ankle strength (at the time of the eval: Ankle MMT: R DF 10.7 and L 4.8 R PF 10.8 and L 6.8 R INV 7.5 and L 3.8 R EV 7.5 and L 4.4). Goal Time Frame: 6-8 Weeks Goal 4:: Be able to complete 3 X 10 standing toe raises on the L without signs of fatigue Goal Time Frame: 6-8 Weeks Goal 5:: Be able to walk with 50% less L foot pain Goal Time Frame: 6-8 Weeks Rehabilitation Potential Rehabilitation Potential: Good Anticipated Interventions Patient/Client Instruction: Educate patient on: Condition and Plan of Care For the Purpose of:: To decrease pain, To increase ROM, To improve nutrient delivery to tissue, To improve muscle performance and motor function, To improve ability to perform ADL's, To increase tolerance to activity/condition/position, To improve performance and independence with ADL's, To decrease level of supervision to perform tasks, To improve ability of physical actions for home/community/work/leisure, To improve gait and locomotor functions, To improve health of tissue, To decrease soft tissue restriction and To increase flexibility/ROM Therapeutic Exercise to Include: Strength training, Endurance training, Balance training, Flexibilty training, Gait and locomotor training, Neuromotor de velopment, Passive ROM and Active ROM For the Purpose of:: To decrease pain, To decrease swelling/inflammation, To increase ROM, To improve nutrient delivery to tissue, To increase oxygenation perfusion, To improve muscle performance and motor function, To improve ability to perform ADL's, To increase tolerance to activity/condition/position, To improve performance and independence with ADL's, To decrease level of supervision to perform tasks, To improve ability of physical actions for home/community/work/leisure, To improve gait and locomotor functions, To improve health of tissue, To decrease soft tissue restriction, To increase flexibility/ROM and To improve balance Functional Training to Include: Gait training For the Purpose of:: To improve gait and locomotor functions Manual Therapy Techniques to Include: Passive ROM and Soft tissue mobilization For the Purpose of:: To decrease pain, To decrease swelling/inflammation, To increase ROM, To improve nutrient delivery to tissue, To improve muscle performance and motor function and To improve ability to perform ADL's Text: Thank you for the opportunity to evaluate your patient. For Medicare and Medicare HMO plans, please review the plan of care and approve it. It will need to be FAXED BACK to us at [phone] for Medicare purposes. For Medicare only, by signing this I certify the plan of care. Please let me know if there are questions or concerns regarding this plan of care. Physician Signature: Date:
--- NOTE | 2025-07-21 14:10 | HP.PT.NRP ---
Patient Information Patient Information: SINDHU VILLALTA was seen in my office for initial evaluation on 02/18/25. The following Plan of Care was established for this patient: POC Established Initial Frequency: 1x/Week Initial Duration: 6 Weeks Anticipated Interventions Patient/Client Instruction: Educate patient on: Condition and Plan of Care For the Purpose of:: To decrease pain, To increase ROM, To improve nutrient delivery to tissue, To improve muscle performance and motor function, To improve ability to perform ADL's, To increase tolerance to activity/condition/position, To improve performance and independence with ADL's, To decrease level of supervision to perform tasks, To improve ability of physical actions for home/community/work/leisure, To improve gait and locomotor functions, To improve health of tissue, To decrease soft tissue restriction and To increase flexibility/ROM Therapeutic Exercise to Include: Strength training, Endurance training, Balance training, Flexibilty training, Gait and locomotor training, Neuromotor development, Passive ROM and Active ROM For the Purpose of:: To decrease pain, To decrease swelling/inflammation, To increase ROM, To improve nutrient delivery to tissue, To increase oxygenation perfusion, To improve muscle performance and motor function, To improve ability to perform ADL's, To increase tolerance to activity/condition/position, To improve performance and independence with ADL's, To decrease level of supervision to perform tasks, To improve ability of physical actions for home/community/work/leisure, To improve gait and locomotor functions, To improve health of tissue, To decrease soft tissue restriction, To increase flexibility/ROM and To improve balance Functional Training to Include: Gait training For the Purpose of:: To improve gait and locomotor functions Manual Therapy Techniques to Include: Passive ROM and Soft tissue mobilization For the Purpose of:: To decrease pain, To decrease swelling/inflammation, To increase ROM, To improve nutrient delivery to tissue, To improve muscle performance and motor function and To improve ability to perform ADL's Last Seen Last Seen: This patient was last seen in our office 03/17/25. Pertinent comments regarding their Physical therapy will appear below: ROGELIO PT At this point I will be discontinuing this patient from physical therapy. I would be happy to see this patient again in the future if found appropriate by the physician. Thank you! Flores Montiel, MPT Balance/Gait/Functional tests Balance/Special Test Scores Lower Extremity Functional Score: 55
== END 2025-03-17 19:00 | disposition home or self-care (01) ==
LOC: PT 11:30
PROVIDERS: PCP Internal Medicine; Referring Provider Podiatrist; Visit Provider Podiatrist
DX: M21.372 Foot drop, left foot (principal); M19.072 Primary osteoarthritis, left ankle and foot
CPT/HCPCS: 97035; 97110; 97140; 97161

== ENCOUNTER → 2025-04-15 | Outpatient (CLI) | payer MEDICARE, OTHER, SELFPAY ==
--- NOTE | 2025-04-15 15:42 | RAD_ITS ---
PROCEDURE: HIP, UNI W/ PELVIS 2-3 VIEWS 04/15/2025 REASON FOR EXAM: HIP PAIN TECHNIQUE: Three views of the right hip COMPARISON: Right hip radiographs on 02/01/2024 FINDINGS: No displaced fracture. Mild joint space narrowing in both hips. Degenerative changes of the sacroiliac joints and lower lumbar spine. Phleboliths project in the pelvis. The soft tissues are otherwise unremarkable. RAD/HIP, UNI W/ Pelvis 2-3 Views IMPRESSION: Mild osteoarthritis of the hips. Reading Location: [id number]
== END | disposition home or self-care (01) ==
LOC: MTRAD 15:40
PROVIDERS: PCP Internal Medicine; Referring Provider Nurse Practitioner Family; Visit Provider Nurse Practitioner Family
DX: M25.551 Pain in right hip (principal)
CPT/HCPCS: 73502

== ENCOUNTER → 2025-05-20 | Outpatient (CLI) | payer MEDICARE, OTHER, SELFPAY ==
--- NOTE | 2025-05-20 09:51 | BI_ITS ---
EXAM: SCRN MAMM (CAD)W/JAM BILAT DATE: 05/20/2025 CLINICAL HISTORY: F, Age 74 y/o , SCREENING No family history. TECHNIQUE: SCRN MAMM (CAD)W/JAM BILAT COMPARISON: Prior exam(s) dated May 17, 2023.. FINDINGS: TISSUE DENSITY: The breasts are heterogeneously dense, which may obscure small masses. Bilateral Breast Mammographic Findings: No significant masses, calcifications or other abnormalities are identified. No suspicious masses, areas of developing architectural distortion, or suspicious calcifications. There has been no significant interval change. BI/SCRN MAMM (CAD)W/JAM BILAT IMPRESSION: Stable examination. OVERALL FINAL ASSESSMENT BI-RADS 1: NEGATIVE. RECOMMEND ANNUAL MAMMOGRAPHIC SCREENING. RECOMMENDATION: Routine annual follow-up in 1 Year A letter with findings and recommendations will be mailed to the patient. Reading Location: [place] [id number]
--- NOTE | 2025-05-20 09:56 | BD_ITS ---
PROCEDURE: DEXA BONE DENSITY STUDY 05/20/2025 REASON FOR EXAM: F, age 74 y/o . Postmenopausal. TECHNIQUE: DEXA BONE DENSITY STUDY COMPARISON: Prior study dated May 17, 2023. FINDINGS: BMD and T-SCORES Lumbar spine: 0.689 g/cm2, T-score -2.9 Levels: L1 through L4 Change from prior: Loss of 4.3%. Left femoral neck: 0.503 g/cm2, T-score -3.1 Femoral neck comparison data not recommended for monitoring change. Left total hip: 0.657 g/cm2, T-score -2.3 Change from prior: Loss of 8%. Right femoral neck: 0.538 g/cm2, T-score -2.8 Femoral neck comparison data not recommended for monitoring change. Right total hip: 0.650 g/cm2, T-score -2.4 Change from prior: Loss of 6.1%. The World Health Organization has defined the following categories based on bone density: Normal bone density: T-score equal to or greater than -1.0 Osteopenia: T-score between -1.0 and -2.5 Osteoporosis: T-score equal to or less than -2.5 The patient does meet the pharmacological treatment recommendations for prevention of osteoporosis. BD/Dexa Bone Density Study IMPRESSION: OSTEOPOROSIS. Recommend follow-up as clinically warranted. Reading Location: [place] [id number]
== END | disposition home or self-care (01) ==
LOC: OPBD 09:50
PROVIDERS: PCP Internal Medicine; Referring Provider Internal Medicine; Visit Provider Internal Medicine
DX: Z12.31 Encounter for screening mammogram for malignant neoplasm of breast (principal); Z78.0 Asymptomatic menopausal state
CPT/HCPCS: 77063; 77067; 77080